=== PATIENT | female | born 1935 | race Caucasian/White ===

== ENCOUNTER → 2016-11-12 | Outpatient (CLI) | payer MEDICARE, BC ==
[2016-11-12 12:24] LABS: ANION GAP 11 (5-19); BLOOD UREA NITROGEN 17 mg/dL (7-20); CARBON DIOXIDE 26 mmol/L (22-30); CHLORIDE 103 mmol/L (98-107); CHOLESTEROL 200.45 mg/dL (0-200); CREATININE RESULT 0.79 mg/dL (0.52-1.25); Direct HDL 88 mg/dL (>40); GLUCOSE 80 mg/dL (75-110); POTASSIUM 4.5 mmol/L (3.6-5.0); SODIUM 140.1 mmol/L (137-145); TRIGLYCERIDES 111 mg/dL (<150)
[2016-11-12 12:35] LABS: DIRECT LDL 94 mg/dL (<100)
== END ==
LOC: OD 10:55
PROVIDERS: ATTEND Family Medicine
DX: E78.2 Mixed hyperlipidemia (principal); I10 Essential (primary) hypertension; D64.9 Anemia, unspecified; Z79.899 Other long term (current) drug therapy
CPT/HCPCS: 36415; 80048; 80061; 83036; 84443

== ENCOUNTER 2016-11-21 17:51 | Observation (INO) | payer MEDICARE, BC ==
--- NOTE | 2016-11-21 18:44 | ER Document Report ---
ED Medical Screen (RME) - General Chief Complaint: Headache Stated Complaint: HEADACHE,LEFT ARM PAIN Mode of Arrival: Ambulatory Information source: Patient Notes: 81-year-old female presents to the emergency department complaining of onset of left arm pain, headache, and left arm weakness approximately 2 and half hours ago while watching television. Denies vision changes nausea or vomiting, chest pain, shortness of breath. I have greeted and performed a rapid initial assessment of this patient. A comprehensive ED assessment and evaluation of the patient, analysis of test results and completion of the medical decision making process will be conducted by additional ED providers. TRAVEL OUTSIDE OF THE [place] IN LAST 30 DAYS: No - Related Data Allergies/Adverse Reactions: ciprofloxacin [From Cipro] Allergy (Verified 11/21/16 18:32) ibuprofen Allergy (Verified 11/21/16 18:32) methotrexate [Methotrexate] Allergy (Verified 11/21/16 18:32) Hives NSAIDS (Non-Steroidal Anti-Inflamma [Nsaids] Allergy (Verified 11/21/16 18:32) aspirin [Aspirin] Adverse Reaction (Mild, Verified 11/21/16 18:32) Nausea codeine [Codeine] Adverse Reaction (Verified 11/21/16 18:32) hydrocodone [Hydrocodone] Adverse Reaction (Verified 11/21/16 18:32) oxycodone HCl [From Percocet] Adverse Reaction (Verified 11/21/16 18:32) Dizziness Sulfa (Sulfonamide Antibiotics) Adverse Reaction (Verified 11/21/16 18:32) Past Medical History - Social History Chew tobacco use (# tins/day): No Frequency of alcohol use: None Drug Abuse: None - Past Medical History Cardiac Medical History: Reports: Hx Atrial Fibrillation, Hx Hypercholesterolemia, Hx Hypertension Pulmonary Medical History: Reports: Hx Asthma, Hx Bronchitis, Hx COPD Denies: Hx Tuberculosis Neurological Medical History: Denies: Hx Seizures Renal/ Medical History: Denies: Hx Peritoneal Dialysis GI Medical History: Reports: Hx Gastroesophageal Reflux Disease Musculoskeltal Medical History: Reports Hx Arthritis, Reports Hx Fibromyalgia Psychiatric Medical History: Reports: Hx Depression Past Surgical History: Reports: Hx Appendectomy, Hx Hysterectomy, Hx Orthopedic Surgery - cervical fusion, Hx Tonsillectomy, Hx Tubal Ligation. Denies: Hx Pacemaker - Immunizations Immunizations up to date: Yes Hx Diphtheria, Pertussis, Tetanus Vaccination: Yes Physical Exam - Vital signs Vitals: Temp Pulse Resp BP Pulse Ox 98.1 F 102 H 20 138/51 H 97 11/21/16 18:29 11/21/16 18:29 11/21/16 18:29 11/21/16 18:29 11/21/16 18:29 - HEENT Pupils: PERRL - Respiratory Respiratory status: No respiratory distress - Cardiovascular Rhythm: Regular Pulses: Normal: Radial Normal capillary refill: Yes - Neurological Neuro grossly intact: Yes Cognition: Normal Orientation: AAOx4 [place] Coma Scale Eye Opening: Spontaneous [place] Coma Scale Verbal: Oriented [place] Coma Scale Motor: Obeys Commands [place] Coma Scale Total: 15 Speech: Normal Course - Vital Signs Vital signs: Temp Pulse Resp BP Pulse Ox 98.1 F 102 H 20 138/51 H 97 11/21/16 18:29 11/21/16 18:29 11/21/16 18:29 11/21/16 18:29 11/21/16 18:29
[2016-11-21] MEDS ORDERED: OXYCODONE-ACETAMINOPHEN 5-325 MG TABLET PO ONE (19:24)
--- NOTE | 2016-11-21 19:40 | ER Document Report ---
ED General - General Chief Complaint: Headache Stated Complaint: HEADACHE,LEFT ARM PAIN Mode of Arrival: Ambulatory Information source: Patient Notes: 81-year-old female presents with complaints of sudden left arm numbness weakness headache and then severe left arm pain. Patient denies any other symptoms and family member notes these symptoms are new for the patient patient also admits to chills TRAVEL OUTSIDE OF THE [place] IN LAST 30 DAYS: No - HPI Onset: Just prior to arrival Onset/Duration: Sudden Quality of pain: Sharp Severity: Mild Pain Level: 1 Associated symptoms: Headache Exacerbated by: Movement Relieved by: Denies Similar symptoms previously: No Recently seen / treated by doctor: No - Related Data Allergies/Adverse Reactions: ciprofloxacin [From Cipro] Allergy (Verified 11/21/16 18:32) ibuprofen Allergy (Verified 11/21/16 18:32) methotrexate [Methotrexate] Allergy (Verified 11/21/16 18:32) Hives NSAIDS (Non-Steroidal Anti-Inflamma [Nsaids] Allergy (Verified 11/21/16 18:32) aspirin [Aspirin] Adverse Reaction (Mild, Verified 11/21/16 18:32) Nausea codeine [Codeine] Adverse Reaction (Verified 11/21/16 18:32) hydrocodone [Hydrocodone] Adverse Reaction (Verified 11/21/16 18:32) oxycodone HCl [From Percocet] Adverse Reaction (Verified 11/21/16 18:32) Dizziness Sulfa (Sulfonamide Antibiotics) Adverse Reaction (Verified 11/21/16 18:32) Past Medical History - General Information source: Patient - Social History Smoking Status: Never Smoker Cigarette use (# per day): No Chew tobacco use (# tins/day): No Smoking Education Provided: No Frequency of alcohol use: None Drug Abuse: None Family History: Reviewed & Not Pertinent, Hypertension Patient has suicidal ideation: No Patient has homicidal ideation: No - Past Medical History Cardiac Medical History: Reports: Hx Atrial Fibrillation, Hx Hypercholesterolemia, Hx Hypertension Pulmonary Medical History: Reports: Hx Asthma, Hx Bronchitis, Hx COPD Denies: Hx Tuberculosis Neurological Medical History: Denies: Hx Seizures Renal/ Medical History: Denies: Hx Peritoneal Dialysis GI Medical History: Reports: Hx Gastroesophageal Reflux Disease Musculoskeltal Medical History: Reports Hx Arthritis, Reports Hx Fibromyalgia Psychiatric Medical History: Reports: Hx Depression Past Surgical History: Reports: Hx Appendectomy, Hx Hysterectomy, Hx Orthopedic Surgery - cervical fusion, Hx Tonsillectomy, Hx Tubal Ligation. Denies: Hx Pacemaker - Immunizations Immunizations up to date: Yes Hx Diphtheria, Pertussis, Tetanus Vaccination: Yes Hx Pneumococcal Vaccination: 08/13/14 Review of Systems - Review of Systems Notes: REVIEW OF SYSTEMS: CONSTITUTIONAL : Denies fever, chills, or sweats. Denies recent illness. EENT: Denies eye, ear, throat, or mouth pain or symptoms. Denies nasal or sinus congestion or discharge. Denies throat, tongue, or mouth swelling or difficulty swallowing. CARDIOVASCULAR: Denies chest pain. Denies palpitations or racing or irregular heart beat. Denies ankle edema. RESPIRATORY: Denies cough, cold, or chest congestion. Denies shortness of breath, difficulty breathing, or wheezing. GASTROINTESTINAL: Denies abdominal pain or distention. Denies nausea, vomiting , or diarrhea. Denies blood in vomitus, stools, or per rectum. Denies black, tarry stools. Denies constipation. GENITOURINARY: Denies difficulty urinating, painful urination, burning, frequency, blood in urine, or discharge. FEMALE GENITOURINARY: Denies vaginal bleeding, heavy or abnormal periods, irregular periods. Denies vaginal discharge or odor. MUSCULOSKELETAL: Denies back or neck pain or stiffness. Denies joint pain or swelling. SKIN: Denies rash, lesions or sores. HEMATOLOGIC : Denies easy bruising or bleeding. LYMPHATIC: Denies swollen, enlarged glands. NEUROLOGICAL: admits ot headache, left arm weakness and pain PSYCHIATRIC: Denies anxiety or stress. Denies depression, suicidal ideation, or homicidal ideation. ALL OTHER SYSTEMS REVIEWED AND NEGATIVE. Dictation was performed using [employer] voice recognition software PHYSICAL EXAMINATION: GENERAL: Well-appearing, well-nourished and in mild distress. HEAD: Atraumatic, normocephalic. EYES: Pupils equal round and reactive to light, extraocular movements intact, conjunctiva are normal. ENT: Nares patent, oropharynx clear without exudates. Moist mucous membranes. NECK: Normal range of motion, supple without lymphadenopathy LUNGS: Breath sounds clear to auscultation bilaterally and equal. No wheezes rales or rhonchi. HEART: Regular rate and rhythm without murmurs ABDOMEN: Soft, nontender, nondistended abdomen. No guarding, no rebound. No masses appreciated. Female : deferred Musculoskeletal: left arm pain NEUROLOGICAL: left arm pain PSYCH: Normal mood, normal affect. SKIN: Warm, Dry, normal turgor, no rashes or lesions noted. Physical Exam - Vital signs Vitals: Temp Pulse Resp BP Pulse Ox 98.1 F 102 H 20 138/51 H 97 11/21/16 18:29 11/21/16 18:29 11/21/16 18:29 11/21/16 18:29 11/21/16 18:29 Course - Re-evaluation Re-evalutation: 11/21/16 19:39 Patient will be emergently sent for CT of the head to rule out an acute stroke 11/21/16 20:51 ct head was negative 11/21/16 20:54 Patient given aspirin, have high suspicion for CVA however the pain component is odd. Patients in sinus rhythm Patient had difficulty swallowing with swallow evaluation we'll hold off on oral pills will give IV pain control - Vital Signs Vital signs: Temp Pulse Resp BP Pulse Ox 98.1 F 99 17 151/69 H 94 11/21/16 18:29 11/21/16 19:00 11/21/16 20:01 11/21/16 20:01 11/21/16 20:01 - Laboratory Result Diagrams: 11/21/16 19:50 11/21/16 19:50 Laboratory results interpreted by me: 11/21/16 11/21/16 19:50 19:50 Seg Neutrophils % 78.7 H Sodium 134.1 L Chloride 97 L AST 53 H ALT 58 H - Diagnostic Test Radiology reviewed: Image reviewed, Reports reviewed - EKG Interpretation by Sd EKG shows normal: Sinus rhythm, [place], Intervals, QRS Complexes Discharge - Discharge Clinical Impression: Weakness of left upper extremity HTN (hypertension) Qualifiers: Hypertension type: essential hypertension Qualified Code(s): I10 - Essential ( primary) hypertension Headache Qualifiers: Headache type: unspecified Headache chronicity pattern: acute headache Intractability: not intractable Qualified Code(s): R51 - Headache Dysphagia Qualifiers: Dysphagia type: oral phase Qualified Code(s): R13.11 - Dysphagia, oral phase Condition: Stable Disposition: ADMITTED INPATIENT Admitting Provider: Hospitalist Unit Admitted: Telemetry
[2016-11-21 20:09] LABS: ABSOLUTE LYMPHOCYTES (AUTO) 1.4 10^3/uL (0.5-4.7); ABSOLUTE MONOCYTES (AUTO) 0.6 10^3/uL (0.1-1.4); ABSOLUTE NEUT (AUTO) 7.8 10^3/uL (1.7-8.2); BASOPHILS % (AUTO) 0.5 % (0-2); EOSINOPHILS % (AUTO) 0.4 % (0-6); HEMATOCRIT 38.6 % (36.0-47.0); HEMOGLOBIN 12.8 g/dL (12.0-15.5); HGB HCT DIFFERENCE -0.2; LYMPHOCYTES % (AUTO) 14.5 % (13-45); MEAN CORPUSCULAR HEMOGLOBIN 30.3 pg (27.0-33.4); MEAN CORPUSCULAR HGB CONC 33.3 g/dL (32.0-36.0); MEAN CORPUSCULAR VOLUME 91 fl (80-97); MONOCYTES % (AUTO) 5.9 % (3-13); RED BLOOD COUNT 4.24 10^6/uL (3.72-5.28); SEGMENTED NEUTROPHILS % (AUTO) 78.7 % (42-78)
[2016-11-21 20:30] LABS: ALANINE AMINOTRANSFERASE 58 U/L (9-52); ALBUMIN 4.3 g/dL (3.5-5.0); ALKALINE PHOSPHATASE 64 U/L (38-126); ANION GAP 12 (5-19); ASPARTATE AMINO TRANSFERASE 53 U/L (14-36); BILIRUBIN,TOTAL 0.5 mg/dL (0.2-1.3); BLOOD UREA NITROGEN 18 mg/dL (7-20); CALCIUM 9.5 mg/dL (8.4-10.2); CARBON DIOXIDE 25 mmol/L (22-30); CHLORIDE 97 mmol/L (98-107); CREATINE KINASE 42 U/L (30-135); CREATININE RESULT 0.73 mg/dL (0.52-1.25); GLUCOSE 93 mg/dL (75-110); POTASSIUM 4.7 mmol/L (3.6-5.0); SODIUM 134.1 mmol/L (137-145); TOTAL PROTEIN 6.8 g/dL (6.3-8.2)
[2016-11-21 20:41] LABS: CREATINE KINASE MB 0.78 ng/mL (<4.55)
[2016-11-21 20:42] LABS: TROPONIN I < 0.012 ng/mL
[2016-11-21] MEDS ORDERED: MORPHINE SULFATE 10 MG/ML INJ IV ONE (20:46)
[2016-11-21] MEDS ORDERED: ASPIRIN 325 MG TABLET PO ONE (20:54)
[2016-11-21] MEDS ORDERED: DOCUSATE SODIUM 100 MG CAPSULE PO PRN (20:57)
[2016-11-21] MEDS ORDERED: MAGNESIUM HYDROXIDE SUSP 30 ML UDCUP PO PRN (20:57)
[2016-11-21] MEDS ORDERED: ATORVASTATIN CALCIUM 80 MG TABLET PO ONE (22:00)
[2016-11-21] MEDS ORDERED: DILTIAZEM HCL 60 MG TABLET PO ONE (22:00)
[2016-11-21] MEDS ORDERED: HALOPERIDOL 2 MG TABLET PO ONE (22:20)
[2016-11-22] MEDS: HEPARIN SOD (PORCINE) 5,000 UNIT/ML 1 ML SYRINGE SUBCUT SCH ×4 (00:06→22:07)
[2016-11-22 02:38] LABS: CREATINE KINASE MB 0.48 ng/mL (<4.55); TROPONIN I 0.02 ng/mL
[2016-11-22] MEDS: MORPHINE SULFATE 10 MG/5 ML ORAL SOLUTION UDCUP PO PRN ×2 (02:46→06:53)
--- NOTE | 2016-11-22 05:11 | PDOC H&P ---
History of Present Illness Admission Date/PCP: 11/21/16 20:57 LOBITO HYMAN MD Patient complains of: Left shoulder pain History of Present Illness: ARMANDO MANLEY is a 81 year old female with a past medical history of TIA, atrial fibrillation, hypertension, rheumatoid arthritis, osteopenia, anxiety and chronic pain. Who been her usual state of health until sudden onset of severe and reproducible pain to the left shoulder worsened by minimal movement or palpation of the anterior shoulder. Specifically unable to perform anterior flexion without excruciating pain. Patient's initial complaint of vague weakness with numbness is verified to be inaccurate. Patient denies previous episode and denies trauma. Past Medical History Cardiac Medical History: Reports: Atrial Fibrillation, Hyperlipidema, Hypertension Pulmonary Medical History: Reports: Asthma, Bronchitis, Chronic Obstructive Pulmonary Disease (COPD) Denies: Tuberculosis Neurological Medical History: Denies: Seizures GI Medical History: Reports: Gastroesophageal Reflux Disease Musculoskeltal Medical History: Reports: Arthritis, Fibromyalgia Psychiatric Medical History: Reports: Depression Hematology: Reports: Anemia Past Surgical History Past Surgical History: Reports: Appendectomy, Hysterectomy, Orthopedic Surgery - cervical fusion, Tonsillectomy, Tubal Ligation Denies: Pacemaker Social History Information Source: Patient Lives with: Family Smoking Status: Never Smoker Frequency of Alcohol Use: None Hx Recreational Drug Use: No Drugs: None - Advance Directive Resuscitation Status: Full Code Family History Family History: Reviewed & Not Pertinent, Hypertension Parental Family History Reviewed: Yes Children Family History Reviewed: Yes Sibling(s) Family History Reviewed.: Yes Medication/Allergy Home Medications: Clopidogrel Bisulfate [Plavix] 1 tab PO DAILY 03/06/15 Colchicine [Colcrys] 1 tab PO DAILY 03/06/15 Cyclosporine 0.05% Oph Emulsio [Restasis 0.05% Oph Emulsion Pf 0.4 ml] 1 drop OU DAILY 03/06/15 Digoxin [Lanoxin 0.125 mg Tablet] 1 tab PO DAILY 03/06/15 Diltiazem HCl [Cardizem Cd 120 mg Capsule] 1 tab PO DAILY 03/06/15 Fluticasone Propionate [Flonase Nasal [place] 50 Mcg/[place] 16 gm] 1 each NASL DAILY 03/06/15 Fluticasone/Salmeterol [Advair 100-50 Diskus 14 Dose/Diskus] 1 inh IH Q12H 03/06 Gabapentin 1 tab PO DAILY 03/06/15 Lansoprazole [Prevacid] 1 tab PO DAILY 03/06/15 Magnesium Oxide [Magox] 1 tab PO DAILY 03/06/15 Prednisone 1.5 tab PO DAILY 03/06/15 Adalimumab [Humira] 1 dose SQ ASDIR PRN 11/22/16 Ergocalciferol (Vitamin D2) [Vitamin D2] 1 tab PO ASDIR PRN 11/22/16 Meclizine HCl [Antivert 25 mg Tablet] 1 tab PO Q8HP PRN 11/22/16 Oxycodone HCl [Oxycodone HCl] 1 tab PO Q4H PRN 11/22/16 Prednisone [Prednisone] 1 tab PO DAILY 11/22/16 Sennosides/Docusate Sodium [Ra Senna Plus Tablet] 1 tab PO QAM 11/22/16 Allergies/Adverse Reactions: ciprofloxacin [From Cipro] Allergy (Verified 11/21/16 18:32) ibuprofen Allergy (Verified 11/21/16 18:32) methotrexate [Methotrexate] Allergy (Verified 11/21/16 18:32) Hives NSAIDS (Non-Steroidal Anti-Inflamma [Nsaids] Allergy (Verified 11/21/16 18:32) aspirin [Aspirin] Adverse Reaction (Mild, Verified 11/21/16 18:32) Nausea codeine [Codeine] Adverse Reaction (Verified 11/21/16 18:32) hydrocodone [Hydrocodone] Adverse Reaction (Verified 11/21/16 18:32) oxycodone HCl [From Percocet] Adverse Reaction (Verified 11/21/16 18:32) Dizziness Sulfa (Sulfonamide Antibiotics) Adverse Reaction (Verified 11/21/16 18:32) Review of Systems Constitutional: ABSENT: chills, fever(s), headache(s), weight gain, weight loss Eyes: ABSENT: visual disturbances Ears: ABSENT: hearing changes Cardiovascular: ABSENT: chest pain, dyspnea on exertion, edema, orthropnea, palpitations Respiratory: ABSENT: cough, hemoptysis Gastrointestinal: ABSENT: abdominal pain, constipation, diarrhea, hematemesis, hematochezia, nausea, vomiting Genitourinary: ABSENT: dysuria, hematuria Musculoskeletal: ABSENT: joint swelling Integumentary: ABSENT: rash, wounds Neurological: ABSENT: abnormal gait, abnormal speech, confusion, dizziness, focal weakness, syncope Psychiatric: PRESENT: anxiety. ABSENT: depression, homidical ideation, suicidal ideation Endocrine: ABSENT: cold intolerance, heat intolerance, polydipsia, polyuria Hematologic/Lymphatic: ABSENT: easy bleeding, easy bruising Physical Exam Vital Signs: Temp Pulse Resp BP Pulse Ox 97.6 F 99 26 H 116/89 H 94 11/22/16 02:55 11/22/16 02:55 11/22/16 03:02 11/22/16 02:55 11/22/16 03:02 General appearance: PRESENT: severe distress Head exam: PRESENT: atraumatic, normocephalic Eye exam: PRESENT: conjunctiva pink, EOMI, PERRLA. ABSENT: scleral icterus Ear exam: PRESENT: normal external ear exam Mouth exam: PRESENT: moist, tongue midline Neck exam: ABSENT: carotid bruit, JVD, lymphadenopathy, thyromegaly Respiratory exam: PRESENT: clear to auscultation keysha. ABSENT: rales, rhonchi, wheezes Cardiovascular exam: PRESENT: RRR. ABSENT: diastolic murmur, rubs, systolic murmur Pulses: PRESENT: normal dorsalis pedis pul Vascular exam: PRESENT: normal capillary refill GI/Abdominal exam: PRESENT: normal bowel sounds, soft. ABSENT: distended, guarding, mass, organolmegaly, rebound, tenderness Extremities exam: PRESENT: tenderness, other. ABSENT: calf tenderness, clubbing , joint swelling - Left anterior shoulder exquisitely tender to palpation unable to extend, flex or abduct, pedal edema Musculoskeletal exam: PRESENT: ambulatory, tenderness, other - Left anterior shoulder exquisitely tender to palpation unable to extend, flex or abduct. ABSENT: full ROM Neurological exam: PRESENT: alert, awake, oriented to person, oriented to place , oriented to time, oriented to situation, CN II-XII grossly intact. ABSENT: motor sensory deficit Psychiatric exam: PRESENT: anxious Skin exam: PRESENT: dry, intact, warm. ABSENT: cyanosis, rash Results Laboratory Results: 11/22/16 11/22/16 01:45 01:45 Creatine Kinase 74 CK-MB (CK-2) 0.48 Troponin I 0.020 Impressions: Carotid Doppler Study 11/21/16 00:00 IMPRESSION: NO HEMODYNAMICALLY SIGNIFICANT STENOSIS RIGHT INTERNAL CAROTID ARTERY. APPROACHING 50% STENOSIS LEFT PROXIMAL INTERNAL CAROTID ARTERY. Shoulder X-Ray 11/21/16 00:00 IMPRESSION: NO RADIOGRAPHIC EVIDENCE OF ACUTE INJURY. MINIMAL OSTEOARTHRITIS. Head CT 11/21/16 18:28 IMPRESSION: NO ACUTE INTRACRANIAL PROCESS. NO SIGNIFICANT CHANGE FROM PRIOR STUDY. Assessment & Plan - Diagnosis (1) Capsulitis of left shoulder Is this a current diagnosis for this admission?: YesPlan: Symptomatically management physical therapy consultation, imaging to evaluate for fracture given osteoporosis (2) Rheumatoid arthritis Is this a current diagnosis for this admission?: YesPlan: Continue outpatient regiment (3) Fibromyalgia Is this a current diagnosis for this admission?: YesPlan: Symptomatic management reassurance continue outpatient regiment - Time Time Spent: 30 to 50 Minutes
[2016-11-22 07:50] LABS: ABSOLUTE BASOPHILS # (AUTO) 0.1 10^3/uL (0.0-0.2); ABSOLUTE LYMPHOCYTES (AUTO) 2.2 10^3/uL (0.5-4.7); ABSOLUTE MONOCYTES (AUTO) 1.7 10^3/uL (0.1-1.4); ABSOLUTE NEUT (AUTO) 14.8 10^3/uL (1.7-8.2); BASOPHILS % (AUTO) 0.7 % (0-2); EOSINOPHILS % (AUTO) 0.1 % (0-6); HEMATOCRIT 34.5 % (36.0-47.0); HEMOGLOBIN 11.4 g/dL (12.0-15.5); HGB HCT DIFFERENCE -0.3; LYMPHOCYTES % (AUTO) 11.6 % (13-45); MEAN CORPUSCULAR HEMOGLOBIN 29.8 pg (27.0-33.4); MEAN CORPUSCULAR VOLUME 90 fl (80-97); MONOCYTES % (AUTO) 9.1 % (3-13); RED BLOOD COUNT 3.82 10^6/uL (3.72-5.28); RED CELL DISTRIBUTION WIDTH 14.3 % (11.5-14.0); SEGMENTED NEUTROPHILS % (AUTO) 78.5 % (42-78); WHITE BLOOD COUNT 18.8 10^3/uL (4.0-10.5)
[2016-11-22 08:07] LABS: ANION GAP 6 (5-19); BLOOD UREA NITROGEN 20 mg/dL (7-20); CALCIUM 8.7 mg/dL (8.4-10.2); CARBON DIOXIDE 27 mmol/L (22-30); CHLORIDE 97 mmol/L (98-107); CHOLESTEROL 145.95 mg/dL (0-200); CREATINE KINASE 119 U/L (30-135); CREATININE RESULT 0.72 mg/dL (0.52-1.25); Direct HDL 68 mg/dL (>40); GLUCOSE 96 mg/dL (75-110); SODIUM 130.4 mmol/L (137-145); TRIGLYCERIDES 208 mg/dL (<150)
[2016-11-22 08:18] LABS: DIRECT LDL 47 mg/dL (<100)
[2016-11-22 08:19] LABS: CREATINE KINASE MB 1.88 ng/mL (<4.55); TROPONIN I 0.046 ng/mL
[2016-11-22 08:24] LABS: VLDL CHOLESTEROL 41.6 mg/dL (10-31)
[2016-11-22 08:29] LABS: POTASSIUM 3.7 mmol/L (3.6-5.0)
--- NOTE | 2016-11-22 10:34 | EKG REPORT ---
SEVERITY:- ABNORMAL ECG - SINUS TACHYCARDIA LEFT AXIS DEVIATION REPOL ABNRM SUGGESTS ISCHEMIA, LATERAL LEADS : Confirmed by: Shahbaz Ordaz 22-Nov-2016 10:33:59
[2016-11-22] MEDS: DILTIAZEM HCL 120 MG CAP.SR.24H PO SCH (11:22)
[2016-11-22] MEDS: CLOPIDOGREL BISULFATE 75 MG TABLET PO SCH (11:24)
[2016-11-22] MEDS: DIGOXIN 0.125 MG TABLET PO SCH (11:25)
[2016-11-22 14:53] LABS: APPEARANCE,URINE SLIGHTLY-CLOUDY; BILIRUBIN,URINE NEGATIVE (NEGATIVE); GLUCOSE, URINE NEGATIVE (NEGATIVE); KETONES,URINE NEGATIVE (NEGATIVE); LEUKOCYTE ESTERASE,URINE MODERATE (NEGATIVE); NITRITE,URINE NEGATIVE (NEGATIVE); PROTEIN,URINE NEGATIVE (NEGATIVE); URINE SPECIFIC GRAVITY 1.011; UROBILINOGEN,URINE NEGATIVE mg/dL (<2.0)
[2016-11-22 15:20] LABS: CREATINE KINASE MB 2.01 ng/mL (<4.55); TROPONIN I 0.064 ng/mL
[2016-11-22] MEDS: HYDROCODONE/ACETAMINOPHEN 7.5-325 MG TABLET PO PRN (19:20)
[2016-11-23] MEDS: HEPARIN SOD (PORCINE) 5,000 UNIT/ML 1 ML SYRINGE SUBCUT SCH ×3 (05:17→22:01)
[2016-11-23] MEDS: HYDROCODONE/ACETAMINOPHEN 7.5-325 MG TABLET PO PRN ×3 (07:47→22:03)
--- NOTE | 2016-11-23 08:22 | PDOC CONSULTATION ---
Consultation Consult Date: 11/23/16 Consult reason:: Left shoulder pain History of Present Illness Admission Date/PCP: 11/21/16 20:57 LOBITO HYMAN MD History of Present Illness: The patient is an 81-year-old white female with multiple medical comorbidities including rheumatoid arthritis and gout who presents with among other complaints of left shoulder pain. The patient was evaluated and admitted to the hospitalist service. His orthopedics consult for evaluation of the shoulder pain. Past Medical History Cardiac Medical History: Reports: Atrial Fibrillation, Hyperlipidema, Hypertension Pulmonary Medical History: Reports: Asthma, Bronchitis, Chronic Obstructive Pulmonary Disease (COPD) Denies: Tuberculosis Neurological Medical History: Denies: Seizures GI Medical History: Reports: Gastroesophageal Reflux Disease Musculoskeltal Medical History: Reports: Arthritis, Fibromyalgia Psychiatric Medical History: Reports: Depression Hematology: Reports: Anemia Past Surgical History Past Surgical History: Reports: Appendectomy, Hysterectomy, Orthopedic Surgery - cervical fusion, Tonsillectomy, Tubal Ligation Denies: Pacemaker Social History Information Source: Patient, Dr. Pendleton, [facility] Records Lives with: Family Smoking Status: Never Smoker Frequency of Alcohol Use: None Hx Recreational Drug Use: No Drugs: None Hx Prescription Drug Abuse: No - Advance Directive Resuscitation Status: Full Code Family History Family History: Reviewed & Not Pertinent, Hypertension Parental Family History Reviewed: No Children Family History Reviewed: No Sibling(s) Family History Reviewed.: No Medication/Allergy Home Medications: Adalimumab [Humira] 40 mg SQ TH@1000 11/22/16 Ascorbate Calcium [Vitamin C] 500 mg PO DAILY 11/22/16 Calcium Carbonate/Vitamin D3 [Calcium 600 + Vit D 400 Tablet] 1 tab PO DAILY Clopidogrel Bisulfate [Plavix 75 mg Tablet] 75 mg PO DAILY 11/22/16 Colchicine [Colchicine 0.6 mg Tablet] 0.6 mg PO DAILY 11/22/16 Cyclosporine 0.05% Oph Emulsio [Restasis 0.05% Opthalmic [place]] 1 drop OU DAILY 11/22/16 Digoxin [Lanoxin 0.125 mg Tablet] 0.125 mg PO MOWEFR@1000 11/22/16 Diltiazem HCl [Diltiazem 12Hr ER] 120 mg PO Q12 11/22/16 Ergocalciferol (Vitamin D2) [Vitamin D2] 50,000 unit PO [id number] 02/18/17 Fluticasone Propionate [Flonase Nasal [place] 50 Mcg/[place] 16 gm] 1 spray NASL DAILY 11/22/16 Fluticasone/Salmeterol [Advair 100-50 Diskus 14 Dose/Diskus] 1 inh IH Q12 Gabapentin [Neurontin 300 mg Capsule] 300 mg PO Q8 11/22/16 Lansoprazole [Prevacid 15 Mg Odt Tablet] 15 mg PO DAILY 11/22/16 Magnesium Oxide [Magnesium] 400 mg PO Q8 11/22/16 Meclizine HCl [Antivert 25 mg Tablet] 25 mg PO Q8HP PRN 11/22/16 Meloxicam [Mobic 7.5 Mg Tablet] 7.5 mg PO DAILY 11/22/16 Montelukast Sodium [Singulair 10 mg Tablet] 10 mg PO DAILY 11/22/16 Multivits-Min/Iron/FA/Lutein [Centrum Silver Women Tablet] 1 each PO DAILY 11/22 Oxycodone HCl [Oxy-Ir 5 mg Tablet] 2.5 mg PO Q4HP PRN 11/22/16 Prednisone [Deltasone 5 mg Tablet] 7.5 mg PO DAILY 11/22/16 Sennosides [Senna] 8.6 mg PO QAM 11/22/16 Simethicone [Gas-X] 80 mg PO Q6HP PRN 11/22/16 Allergies/Adverse Reactions: ciprofloxacin [From Cipro] Allergy (Verified 11/21/16 18:32) ibuprofen Allergy (Verified 11/21/16 18:32) methotrexate [Methotrexate] Allergy (Verified 11/21/16 18:32) Hives NSAIDS (Non-Steroidal Anti-Inflamma [Nsaids] Allergy (Verified 11/21/16 18:32) aspirin [Aspirin] Adverse Reaction (Mild, Verified 11/21/16 18:32) Nausea codeine [Codeine] Adverse Reaction (Verified 11/21/16 18:32) hydrocodone [Hydrocodone] Adverse Reaction (Verified 11/21/16 18:32) oxycodone HCl [From Percocet] Adverse Reaction (Verified 11/21/16 18:32) Dizziness Sulfa (Sulfonamide Antibiotics) Adverse Reaction (Verified 11/21/16 18:32) Review of Systems All systems: as per PMH Physical Exam Vital Signs: Temp Pulse Resp BP Pulse Ox 36.7 C 86 20 126/51 H 98 11/23/16 07:47 11/23/16 07:47 11/23/16 07:47 11/23/16 07:47 11/23/16 07:47 Intake & Output 11/22/16 11/23/16 11/24/16 06:59 06:59 06:59 Intake Total 5 1028 Output Total 1000 Balance 5 28 Weight 68.9 kg 68.5 kg Physical Exam: Patient's a somewhat frail-appearing elderly white female lying in a hospital bed. He reports no overall improvement in her pain and function of the left upper extremity. She states that now she can use her fingers work before she couldn't. General appearance: PRESENT: mild distress Head exam: PRESENT: normocephalic Eye exam: PRESENT: EOMI Respiratory exam: PRESENT: unlabored Pulses: PRESENT: normal radial pulses Vascular exam: PRESENT: normal capillary refill GI/Abdominal exam: PRESENT: soft Extremities exam: PRESENT: other - Examination of the right shoulder reveals tenderness and erythema over the anterior aspect of the acromion and the glenohumeral joint. There is ballotable fluid. Any passive range of motion is markedly tender. Distally she is brisk capillary refill. Sensory examination is intact to light touch. Patient has symmetric apartment locator strength. Neurological exam: PRESENT: alert, awake, oriented to person, oriented to place , oriented to time, oriented to situation, CN II-XII grossly intact. ABSENT: motor sensory deficit Results Laboratory Results: 11/22/16 07:39 11/22/16 07:39 11/22/16 11/22/16 07:39 14:10 Sodium 130.4 L Potassium 3.7 D Chloride 97 L Carbon Dioxide 27 Anion Gap 6 BUN 20 Creatinine 0.72 Est GFR ( Amer) > 60 Est GFR (Non-Af Amer) > 60 Glucose 96 Calcium 8.7 Triglycerides 208 H Cholesterol 145.95 LDL Cholesterol Direct 47 VLDL Cholesterol 41.6 H HDL Cholesterol 68 Urine Color YELLOW Urine Appearance SLIGHTLY-CLOUDY Urine pH 7.0 Ur Specific [place] 1.011 Urine Protein NEGATIVE Urine Glucose (UA) NEGATIVE Urine Ketones NEGATIVE Urine Blood NEGATIVE Urine Nitrite NEGATIVE Ur Leukocyte Esterase MODERATE H Urine WBC (Auto) 10 Urine RBC (Auto) 0 11/22/16 11/22/16 11/22/16 01:45 01:45 07:39 Creatine Kinase 74 CK-MB (CK-2) 0.48 1.88 Troponin I 0.020 0.046 11/22/16 11/22/16 11/22/16 07:39 14:37 14:37 Creatine Kinase 119 157 H CK-MB (CK-2) 2.01 Troponin I 0.064 Impressions: Carotid Doppler Study 11/21/16 00:00 IMPRESSION: NO HEMODYNAMICALLY SIGNIFICANT STENOSIS RIGHT INTERNAL CAROTID ARTERY. APPROACHING 50% STENOSIS LEFT PROXIMAL INTERNAL CAROTID ARTERY. Shoulder X-Ray 11/21/16 00:00 IMPRESSION: NO RADIOGRAPHIC EVIDENCE OF ACUTE INJURY. MINIMAL OSTEOARTHRITIS. Head CT 11/21/16 18:28 IMPRESSION: NO ACUTE INTRACRANIAL PROCESS. NO SIGNIFICANT CHANGE FROM PRIOR STUDY. Status: Imported from PACS Assessment & Plan - Diagnosis (1) Capsulitis of left shoulder Is this a current diagnosis for this admission?: YesPlan: 81-year-old white female with progressive left shoulder pain and functional disability. Over the course of 2 days. An aspiration of the fluid today reveals approximately 20 mL of a turbid yellow fluid is sent for cell count and differential, culture and sensitivity, and crystal analysis. - Time Time Spent: 50 to 70 Minutes Critical Time spent with patient: 15-24 minutes Within: Other
--- NOTE | 2016-11-23 08:26 | Operative Report ---
Operative Report DATE OF SURGERY: 11/23/16 PREOPERATIVE DIAGNOSIS: Left shoulder inflammation OPERATION: Left shoulder aspiration SURGEON: FLOR ESPINOSA ANESTHESIA: Other PROCEDURE: With the patient supine on the hospital bed. The anterior aspect of the left shoulder was prepped and draped in sterile fashion. An 18-gauge needles advanced through the anterior deltoid and an aspirate of 20 mL of a turbid yellow fluid is performed. Is a sent to the lab for culture and sensitivity, cell count differential, and crystal analysis.
[2016-11-23 09:30] LABS: FLUID APPEARANCE CLOUDY; FLUID TYPE SYNOVIAL
[2016-11-23 09:31] LABS: FLUID RBC DILUENT USED SALINE; FLUID RBC DILUTION FACTOR 20
[2016-11-23 09:41] LABS: FLUID RBC AVERAGE 149.5; FLUID RBC SIDE 1 148; FLUID RBC SIDE 2 151; TOTAL RBC SQUARES COUNTED FLD 50
[2016-11-23 10:02] LABS: OTHER CRYSTALS NONE OBSERVED
--- NOTE | 2016-11-23 10:33 | EKG REPORT ---
SEVERITY:- OTHERWISE NORMAL ECG - SINUS RHYTHM ATRIAL PREMATURE COMPLEX BORDERLINE LEFT AXIS DEVIATION : Confirmed by: Shahbaz Ordaz 23-Nov-2016 10:32:59
--- NOTE | 2016-11-23 10:42 | PDOC PROGRESS REPORT ---
Subjective Progress Note for:: 11/23/16 Subjective:: Complains of pain in her left shoulder. 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 Physical Exam Vital Signs: Temp Pulse Resp BP Pulse Ox 98.0 F 86 20 126/51 H 98 11/23/16 07:47 11/23/16 07:47 11/23/16 07:47 11/23/16 07:47 11/23/16 07:47 Intake & Output 11/22/16 11/23/16 11/24/16 06:59 06:59 06:59 Intake Total 5 1028 Output Total 1000 Balance 5 28 Weight 68.9 kg 68.5 kg General appearance: PRESENT: no acute distress Eye exam: PRESENT: conjunctiva pink. ABSENT: scleral icterus Mouth exam: PRESENT: moist, tongue midline Neck exam: ABSENT: JVD Respiratory exam: PRESENT: clear to auscultation keysha. ABSENT: rales, rhonchi, wheezes Cardiovascular exam: PRESENT: RRR. ABSENT: diastolic murmur, rubs, systolic murmur GI/Abdominal exam: PRESENT: normal bowel sounds, soft. ABSENT: distended, guarding, mass, organolmegaly, rebound, tenderness Extremities exam: PRESENT: other - Left shoulder has less swelling after removal Neurological exam: PRESENT: alert, awake, oriented to person, oriented to place , oriented to time, oriented to situation, CN II-XII grossly intact. ABSENT: motor sensory deficit Psychiatric exam: PRESENT: appropriate affect Skin exam: PRESENT: dry, intact, warm. ABSENT: cyanosis, rash Results Laboratory Results: 11/22/16 07:39 11/22/16 07:39 11/22/16 11/23/16 11/23/16 14:10 08:30 08:30 Urine Color YELLOW Urine Appearance SLIGHTLY-CLOUDY Urine pH 7.0 Ur Specific [place] 1.011 Urine Protein NEGATIVE Urine Glucose (UA) NEGATIVE Urine Ketones NEGATIVE Urine Blood NEGATIVE Urine Nitrite NEGATIVE Ur Leukocyte Esterase MODERATE H Urine WBC (Auto) 10 Urine RBC (Auto) 0 Fluid Type SYNOVIAL SYNOVIAL Fluid Source LEFT SHOULDER Fluid Color ORANGE Fluid Appearance CLOUDY Fluid Viscosity HIGHLY VISCOUS Fluid WBC [id number] Fluid RBC 14731 11/22/16 11/22/16 11/22/16 01:45 01:45 07:39 Creatine Kinase 74 CK-MB (CK-2) 0.48 1.88 Troponin I 0.020 0.046 11/22/16 11/22/16 11/22/16 07:39 14:37 14:37 Creatine Kinase 119 157 H CK-MB (CK-2) 2.01 Troponin I 0.064 Impressions: Carotid Doppler Study 11/21/16 00:00 IMPRESSION: NO HEMODYNAMICALLY SIGNIFICANT STENOSIS RIGHT INTERNAL CAROTID ARTERY. APPROACHING 50% STENOSIS LEFT PROXIMAL INTERNAL CAROTID ARTERY. Shoulder X-Ray 11/21/16 00:00 IMPRESSION: NO RADIOGRAPHIC EVIDENCE OF ACUTE INJURY. MINIMAL OSTEOARTHRITIS. Head CT 11/21/16 18:28 IMPRESSION: NO ACUTE INTRACRANIAL PROCESS. NO SIGNIFICANT CHANGE FROM PRIOR STUDY. Assessment & Plan - Diagnosis (1) Gouty arthropathy Is this a current diagnosis for this admission?: YesPlan: Patient is unable to take nonsteroidals. We'll start on colchicine 0.6 mg by mouth every 8 hours. If her cultures are negative tomorrow and she still has swelling we would give steroids. Will observe overnight to make certain she does not have any obvious infection and cultures given the elevated white blood cell count on the arthrocentesis. (2) HTN (hypertension) Qualifiers: Hypertension type: essential hypertension Qualified Code(s): I10 - Essential (primary) hypertension Is this a current diagnosis for this admission?: Yes (3) Afib Is this a current diagnosis for this admission?: Yes (4) Chest pain Is this a current diagnosis for this admission?: YesPlan: This most likely referred pain from her shoulder. EKG done this morning was unremarkable. (5) Rheumatoid arthritis Is this a current diagnosis for this admission?: Yes (6) COPD (chronic obstructive pulmonary disease) Is this a current diagnosis for this admission?: YesPlan: No wheezing on exam today. - Time Time Spent with patient: 25-34 minutes - Plan Summary Plan Summary: We'll observe overnight to make certain that her cultures from her arthrocentesis are negative.
[2016-11-23] MEDS: DILTIAZEM HCL 120 MG CAP.SR.24H PO SCH (11:22)
[2016-11-23] MEDS: DIGOXIN 0.125 MG TABLET PO SCH (11:23)
[2016-11-23] MEDS: CLOPIDOGREL BISULFATE 75 MG TABLET PO SCH (11:23)
[2016-11-23] MEDS: COLCHICINE 0.6 MG TABLET PO SCH ×2 (14:18→22:01)
[2016-11-23] MEDS: MORPHINE SULFATE 10 MG/5 ML ORAL SOLUTION UDCUP PO PRN (16:22)
[2016-11-24] MEDS: HYDROCODONE/ACETAMINOPHEN 7.5-325 MG TABLET PO PRN (04:46)
[2016-11-24 05:18] LABS: ANION GAP 7 (5-19); BLOOD UREA NITROGEN 10 mg/dL (7-20); CALCIUM 9.2 mg/dL (8.4-10.2); CARBON DIOXIDE 25 mmol/L (22-30); CHLORIDE 101 mmol/L (98-107); CREATININE RESULT 0.72 mg/dL (0.52-1.25); GLUCOSE 90 mg/dL (75-110); POTASSIUM 4.2 mmol/L (3.6-5.0); SODIUM 133.2 mmol/L (137-145)
[2016-11-24 05:23] LABS: ABSOLUTE BASOPHILS # (AUTO) 0.1 10^3/uL (0.0-0.2); ABSOLUTE EOSINOPHILS # (AUTO) 0.2 10^3/uL (0.0-0.6); ABSOLUTE LYMPHOCYTES (AUTO) 1.8 10^3/uL (0.5-4.7); ABSOLUTE MONOCYTES (AUTO) 0.9 10^3/uL (0.1-1.4); ABSOLUTE NEUT (AUTO) 4.2 10^3/uL (1.7-8.2); BASOPHILS % (AUTO) 0.9 % (0-2); EOSINOPHILS % (AUTO) 2.3 % (0-6); HEMATOCRIT 35.5 % (36.0-47.0); HGB HCT DIFFERENCE 0.5; MEAN CORPUSCULAR HEMOGLOBIN 30.5 pg (27.0-33.4); MEAN CORPUSCULAR HGB CONC 33.9 g/dL (32.0-36.0); MEAN CORPUSCULAR VOLUME 90 fl (80-97); MONOCYTES % (AUTO) 12.8 % (3-13); RED BLOOD COUNT 3.94 10^6/uL (3.72-5.28); RED CELL DISTRIBUTION WIDTH 14.1 % (11.5-14.0); WHITE BLOOD COUNT 7.1 10^3/uL (4.0-10.5)
[2016-11-24] MEDS: HEPARIN SOD (PORCINE) 5,000 UNIT/ML 1 ML SYRINGE SUBCUT SCH (06:13)
[2016-11-24] MEDS: COLCHICINE 0.6 MG TABLET PO SCH (06:13)
[2016-11-24 07:52] VITALS: BP 116/56
[2016-11-24] MEDS: CLOPIDOGREL BISULFATE 75 MG TABLET PO SCH (09:06)
[2016-11-24] MEDS: DIGOXIN 0.125 MG TABLET PO SCH (09:07)
[2016-11-24] MEDS: DILTIAZEM HCL 120 MG CAP.SR.24H PO SCH (09:10)
[2016-11-24] MEDS ORDERED: PREDNISONE 20 MG TABLET PO SCH (10:00)
--- NOTE | 2016-11-24 10:09 | Physician Advisory Note ---
Physician Advisor ProgressNote .: Pursuant to the plan for [facility], I have reviewed the medical record for this patient. Physician Advisor Statement: Possible documentation opportunities if attending agrees: 1. "hyponatremia, likely due to " (was 140 at last check earlier this mo. ) 2. "chronic Afib" or "paroxysmal Afib"? - need type specified now. 3. See status recommendation below. As always, if concerned about any unstable VS or abnormal labs, please comment on them & note what doing about them, & please document each day the potential clinical problems you are concerned could occur if pt not kept in hospital for tx at this time. Discussion: 81yo female w/ chronic co-morbidities including __ Afib, TIA, HTN, RA, osteopenia, chronic pain, fibromyalgia - on chronic prednisone 7.5mg daily, Humira, daily colchicine, Mobic - presented 11/21 PM to ED w/LUE pain, HR 102, Na 134.1, WBC 10.0 Attending ordered prn IV morphine, tele, PT/OT, O2 2L, f/u labs. Status: Initially should have been Outpt Obs. Acute shoulder pain, unclear source. Not needing frequent IV morphine. No abx given while awaiting clarification of acute process. Next day, 11/22, she still had hyponatremia & had developed a significant leukocytosis, without antecedent acute steroid administration, which could be concerning for developing acute bacterial infxn. Ortho was consulted. Sx improved after aspiration of 20ml turbid yellow fluid on 11/23 which was (+) for UA crystals & CPPD crystals. Pt unable to take NSAIDS per attending. F/u CBC & Na labs ordered. At this point, attending felt pt needed to be monitored closely in hospital while awaiting cx results, in case of infxn (especially given the leukocytosis on fluid study, underlying immune compromise), & to be sure she responded sufficiently to colchicine; might need (higher dose) steroids acutely for adequate response. Therefore, a 3rd MN was felt clinically necessary to protect pt's health, safety, & medical condition. Appropriate to consider change to Inpt status, even if she is able to be d/c'd later today. Thanks for your help with documentation accuracy/specificity improvement! Leonie Nassar MD [facility] Physician Advisor, Fellow of [facility]
--- NOTE | 2016-11-24 12:58 | PDOC DISCHARGE SUMMARY ---
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 present on arthrocentesis (2) HTN (hypertension) Is this a current diagnosis for this admission?: Yes (3) Afib Is this a current diagnosis for this admission?: Yes (4) Chest pain Is this a current diagnosis for this admission?: Yes (5) Rheumatoid arthritis Is this a current diagnosis for this admission?: Yes (6) COPD (chronic obstructive pulmonary disease) Is this a current diagnosis for this admission?: Yes - Additional Information Resuscitation Status: Full Code Discharge Diet: Cardiac Discharge Activity: Activity As Tolerated Home Medications: Adalimumab [Humira] 40 mg SQ TH@1000 11/22/16 Ascorbate Calcium [Vitamin C] 500 mg PO DAILY 11/22/16 Calcium Carbonate/Vitamin D3 [Calcium 600 + Vit D 400 Tablet] 1 tab PO DAILY Clopidogrel Bisulfate [Plavix 75 mg Tablet] 75 mg PO DAILY 11/22/16 Colchicine [Colchicine 0.6 mg Tablet] 0.6 mg PO DAILY 11/22/16 Cyclosporine 0.05% Oph Emulsio [Restasis 0.05% Oph Emulsion Pf 0.4 ml] 1 drop OU DAILY 11/22/16 Digoxin [Lanoxin 0.125 mg Tablet] 0.125 mg PO MOWEFR@1000 11/22/16 Diltiazem HCl [Diltiazem 12Hr ER] 120 mg PO Q12 11/22/16 Ergocalciferol (Vitamin D2) [Vitamin D2] 50,000 unit PO D6CFMSM 11/22/16 Fluticasone Propionate [Flonase Nasal [place] 50 Mcg/[place] 16 gm] 1 spray NASL DAILY 11/22/16 Fluticasone/Salmeterol [Advair 100-50 Diskus 14 Dose/Diskus] 1 inh IH Q12 Gabapentin [Neurontin 300 mg Capsule] 300 mg PO Q8 11/22/16 Lansoprazole [Prevacid 15 mg Odt Tablet] 15 mg PO DAILY 11/22/16 Magnesium Oxide [Magnesium] 400 mg PO Q8 11/22/16 Meclizine HCl [Antivert 25 mg Tablet] 25 mg PO Q8HP PRN 11/22/16 Meloxicam [Mobic 7.5 mg Tablet] 7.5 mg PO DAILY 11/22/16 Montelukast Sodium [Singulair 10 mg Tablet] 10 mg PO DAILY 11/22/16 Multivits-Min/Iron/FA/Lutein [Centrum Silver Women Tablet] 1 each PO DAILY 11/22 Oxycodone HCl [Oxy-Ir 5 mg Tablet] 2.5 mg PO Q4HP PRN 11/22/16 Prednisone [Deltasone 5 mg Tablet] 7.5 mg PO DAILY 11/22/16 Sennosides [Senna] 8.6 mg PO QAM 11/22/16 Simethicone [Gas-X] 80 mg PO Q6HP PRN 11/22/16 Prednisone [Deltasone 20 mg Tablet] 10 mg PO DAILY #40 tablet 11/24/16 History of Present Illness History of Present Illness: ARMANDO MANLEY is a 81 year old female who has a history of TIA who was admitted with acute onset left shoulder pain. There is concerned this may represent a TIA initially by emergency physician however pain is reproducible. Hospital Course Hospital Course: 81-year-old female who presented with acute onset of left shoulder pain. Patient was admitted and observed overnight. The patient had worsening swelling of her left shoulder and she underwent arthrocentesis by orthopedic surgery. Both uric acid and CPPD crystals were present consistent with an acute out and pseudogout flare. Patient was put on cultures seen and with previous surgery asked that we observe the patient overnight to make certain there is no obvious infection given the elevated white blood cell count on her arthrocentesis. Patient's cultures were negative after 24 hours is felt that it 's unlikely this is an acute infection most likely reps is just a gout and pseudogout flare. She is started on a prednisone taper and will be sent home with that. Her milligrams all were stable during this hospitalization. Physical Exam Vital Signs: Temp Pulse Resp BP Pulse Ox 97.7 F 76 18 116/56 L 96 11/24/16 12:01 11/24/16 12:01 11/24/16 12:01 11/24/16 07:28 11/24/16 12:01 Intake & Output 0211/24/16 11/25/16 06:59 06:59 06:59 Intake Total 1028 1688 Output Total 1000 2350 Balance 28 -662 Weight 68.5 kg 68.4 kg General appearance: PRESENT: no acute distress Eye exam: PRESENT: conjunctiva pink. ABSENT: scleral icterus Mouth exam: PRESENT: moist, tongue midline Neck exam: ABSENT: JVD Respiratory exam: PRESENT: clear to auscultation keysha. ABSENT: rales, rhonchi, wheezes Cardiovascular exam: PRESENT: RRR. ABSENT: diastolic murmur, rubs, systolic murmur GI/Abdominal exam: PRESENT: normal bowel sounds, soft. ABSENT: distended, guarding, mass, organolmegaly, rebound, tenderness Extremities exam: PRESENT: other - Swelling of the left shoulder but no erythema.. ABSENT: calf tenderness, clubbing, pedal edema Neurological exam: PRESENT: alert, awake, oriented to person, oriented to place , oriented to time, oriented to situation Psychiatric exam: PRESENT: appropriate affect Skin exam: PRESENT: dry, intact, warm. ABSENT: cyanosis, rash Results Laboratory Results: 11/24/16 04:28 11/24/16 04:28 11/24/16 11/24/16 04:28 04:28 WBC 7.1 RBC 3.94 Hgb 12.0 Hct 35.5 L MCV 90 MCH 30.5 MCHC 33.9 RDW 14.1 H Plt Count 157 Seg Neutrophils % 59.0 Lymphocytes % 25.0 Monocytes % 12.8 Eosinophils % 2.3 Basophils % 0.9 Absolute Neutrophils 4.2 Absolute Lymphocytes 1.8 Absolute Monocytes 0.9 Absolute Eosinophils 0.2 Absolute Basophils 0.1 Sodium 133.2 L Potassium 4.2 Chloride 101 Carbon Dioxide 25 Anion Gap 7 BUN 10 Creatinine 0.72 Est GFR ( Amer) > 60 Est GFR (Non-Af Amer) > 60 Glucose 90 Calcium 9.2 11/22/16 11/22/16 11/22/16 01:45 01:45 07:39 Creatine Kinase 74 CK-MB (CK-2) 0.48 1.88 Troponin I 0.020 0.046 11/22/16 11/22/16 11/22/16 07:39 14:37 14:37 Creatine Kinase 119 157 H CK-MB (CK-2) 2.01 Troponin I 0.064 Impressions: Carotid Doppler Study 11/21/16 00:00 IMPRESSION: NO HEMODYNAMICALLY SIGNIFICANT STENOSIS RIGHT INTERNAL CAROTID ARTERY. APPROACHING 50% STENOSIS LEFT PROXIMAL INTERNAL CAROTID ARTERY. Shoulder X-Ray 11/21/16 00:00 IMPRESSION: NO RADIOGRAPHIC EVIDENCE OF ACUTE INJURY. MINIMAL OSTEOARTHRITIS. Head CT 11/21/16 18:28 IMPRESSION: NO ACUTE INTRACRANIAL PROCESS. NO SIGNIFICANT CHANGE FROM PRIOR STUDY. Qualifiers PATEINT BEING DISCHARGED WITH ANY OF THE FOLLOWING DIAGNOSIS?: No Plan Discharge Plan: Patient is discharged home in stable condition. Will follow up with her primary care in 1-2 weeks. Time Spent: Less than 30 Minutes
== END 2016-11-24 12:28 | disposition home or self-care (01) ==
LOC: ER 17:51 → INTOOBSV 20:57 → EH 20:57 → 3W 11-22 04:07
PROVIDERS: ADMIT Internal Medicine; ATTEND Internal Medicine
PROC: 0R9K3ZZ Drainage of Left Shoulder Joint, Percutaneous Approach (ICD-10-PCS; principal; 2016-11-23)
DX: M11.9 Crystal arthropathy, unspecified (principal); M10.012 Idiopathic gout, left shoulder; I10 Essential (primary) hypertension; I48.91 Unspecified atrial fibrillation; R07.9 Chest pain, unspecified; M06.9 Rheumatoid arthritis, unspecified; J44.9 Chronic obstructive pulmonary disease, unspecified; Z86.73 Personal history of transient ischemic attack (TIA), and cerebral infarction without residual deficits; Z79.02 Long term (current) use of antithrombotics/antiplatelets; R51 Headache; R13.11 Dysphagia, oral phase; M79.7 Fibromyalgia; M75.92 Shoulder lesion, unspecified, left shoulder
CPT/HCPCS: 20610; 93005 ×2; 99285; 36415 ×3; 87205; 87070; 82553 ×2; 82550 ×2; 85025 ×3; 89050; 89060; 87075; 80048 ×2; 80053; 81001; 84484 ×2; 80061; 93880; 73030; 70450; 93010 ×2; 97116; 97163; 97167; G0378 ×2; A9270 ×19; J1644 ×3; J2270; J3490 ×3; G8978; G8979; G8987; G8988; J7512

== ENCOUNTER → 2017-01-27 | Outpatient (CLI) | payer MEDICARE, BC | LOC: RAD 17:59 | PROVIDERS: ATTEND Family Medicine | DX: J20.9 Acute bronchitis, unspecified (principal); R05 Cough; R06.2 Wheezing | CPT/HCPCS: 71020 ==

== ENCOUNTER 2017-05-31 01:10 | Emergency (ER) | payer MEDICARE, BC ==
[2017-05-31] MEDS ORDERED: MORPHINE SULFATE 10 MG/ML INJ IV ONE ×2 (02:43→04:07)
[2017-05-31] MEDS ORDERED: METHYLPREDNISOLONE INJ 125 MG/2 ML SDV IV ONE (02:47)
--- NOTE | 2017-05-31 02:52 | ER Document Report ---
ED General - General Chief Complaint: Neck Pain < 24hrs old Stated Complaint: NECK AND SHOULDER PAIN Time Seen by Provider: 05/31/17 02:33 Notes: Patient is an 82-year-old female presents with complaint of severe neck pain. Says pain goes from her neck and into her head. No fevers. No vomiting. No weakness or numbness into the arms or hands. She had pain for started shoulders and worked way into her neck. Pain is mostly on the right side of her neck. She has similar pain in her shoulder in November and was admitted. At that time they checked a fluid in her shoulder and it was consistent with gout and pseudogout. She is unsure if the same thing. Pain is been gradually worsening. No trauma no injuries. No other complaints at this time. TRAVEL OUTSIDE OF THE [place] IN LAST 30 DAYS: No - Related Data Allergies/Adverse Reactions: ciprofloxacin [From Cipro] Allergy (Verified 05/31/17 01:16) ibuprofen Allergy (Verified 11/21/16 18:32) methotrexate [Methotrexate] Allergy (Verified 05/31/17 01:16) Hives NSAIDS (Non-Steroidal Anti-Inflamma [Nsaids] Allergy (Verified 05/31/17 01:16) aspirin [Aspirin] Adverse Reaction (Mild, Verified 05/31/17 01:16) Nausea codeine [Codeine] Adverse Reaction (Verified 05/31/17 01:16) hydrocodone [Hydrocodone] Adverse Reaction (Verified 05/31/17 01:16) oxycodone HCl [From Percocet] Adverse Reaction (Verified 05/31/17 01:16) Dizziness Sulfa (Sulfonamide Antibiotics) Adverse Reaction (Verified 05/31/17 01:16) Past Medical History - Social History Smoking Status: Unknown if Ever Smoked Frequency of alcohol use: None Drug Abuse: None Family History: Reviewed & Not Pertinent, Hypertension Patient has suicidal ideation: No Patient has homicidal ideation: No - Past Medical History Cardiac Medical History: Reports: Hx Atrial Fibrillation, Hx Hypercholesterolemia, Hx Hypertension Pulmonary Medical History: Reports: Hx Asthma, Hx Bronchitis, Hx COPD Denies: Hx Tuberculosis Neurological Medical History: Denies: Hx Seizures Renal/ Medical History: Denies: Hx Peritoneal Dialysis GI Medical History: Reports: Hx Gastroesophageal Reflux Disease Musculoskeltal Medical History: Reports Hx Arthritis, Reports Hx Fibromyalgia Psychiatric Medical History: Reports: Hx Depression Past Surgical History: Reports: Hx Appendectomy, Hx Hysterectomy, Hx Orthopedic Surgery - cervical fusion, Hx Tonsillectomy, Hx Tubal Ligation. Denies: Hx Pacemaker - Immunizations Immunizations up to date: Yes Hx Diphtheria, Pertussis, Tetanus Vaccination: Yes Hx Pneumococcal Vaccination: 08/13/14 Review of Systems - Review of Systems Notes: My Normal Review Basic REVIEW OF SYSTEMS: CONSTITUTIONAL : Denies fever, chills, or sweats. Denies recent illness. EENT: Neck pain CARDIOVASCULAR: Denies chest pain. RESPIRATORY: Denies cough, cold, or chest congestion. Denies shortness of breath, difficulty breathing, or wheezing.Denies constipation. Last BM: MUSCULOSKELETAL: neck Pain SKIN: Denies rash or skin lesions. NEUROLOGICAL: Denies altered mental status or loss of consciousness. Headache. Denies weakness or paralysis or loss of use of either side. Denies problems with gait or speech. Denies sensory or motor loss. ALL OTHER SYSTEMS REVIEWED AND NEGATIVE. Physical Exam - Vital signs Vitals: Temp Pulse Resp BP Pulse Ox 98.4 F 92 18 150/68 H 99 05/31/17 01:16 05/31/17 01:16 05/31/17 01:16 05/31/17 01:16 05/31/17 01:16 - Notes Notes: General Appearance: Well nourished, alert, cooperative, no acute distress, severe obvious discomfort. Vitals: reviewed, See vital signs table. Head: no swelling or tenderness to the head Eyes: PERRL, EOMI, Conjuctiva clear Mouth: No decreasd moisture Neck: tenderness to plapation over the midline of the neck Lungs: No wheezing, No rales, No rhonci, No accessory muscle use, good air exchange bilaterally. Heart: Normal rate, Regular rythm, No murmur, no rub Extremities: strength 5/5 in all extremities, good pulses in all extremities, no swelling or tenderness in the extremities, no edema. Skin: warm, dry, appropriate color, no rash Neuro: speech clear, oriented x 3, normal affect, responds appropriately to questions. Patient has good strength in upper extremities. Distal sensation intact. Cranial nerves II through XII are intact. Course - Re-evaluation Re-evalutation: 05/31/17 04:08 Patient's pain is significantly improved after morphine. She still has some neck pain but says that it is bearable now. I will give her another small dose of morphine which will help with the pain even more improved so that when she gets her CT scan it will not be as painful when she moves. 05/31/17 07:00 Patient's pain is much improved. She looks well. CT Fior of the neck was obtained to make sure the patient have any signs of arterial dissection being that her pain was so severe in her neck and worse with movements. CTA of the neck and head were negative. Patient's pain is easily reproducible palpation movement. I do suspect this is musculoskeletal. She has a previous history of previous neck surgery. Informed her and her grandson that she most likely needs a MRI of her neck. They agree to follow-up with her primary care doctor for reevaluation and for referral for outpatient MRI. Patient does have oxycodone. She is only able take 2.5 mg at a time because otherwise makes her very sick and feeling well. She has taken Ultram in the past and says it did help her in the past. I will prescribe Ultram as this most likely will have less of a sedated for nausea side effect and hopefully will help better control her pain. She has no neurologic deficits in her upper or lower extremities. She otherwise looks well. I feel she is safe to be discharged home. I encouraged him to return to ER if she has worsening intractable pain, weakness or numbness in her extremities, or she feels that she is worsening. Patient and her grandson agree with plan and she will be discharged home. Dictation of this chart was performed using voice recognition software; therefore, there may be some unintended grammatical errors. - Vital Signs Vital signs: Temp Pulse Resp BP Pulse Ox 98.7 F 90 19 147/58 H 90 L 05/31/17 05:59 05/31/17 05:59 05/31/17 05:59 05/31/17 05:59 05/31/17 05:59 - Laboratory Result Diagrams: 05/31/17 03:00 05/31/17 03:00 Laboratory results interpreted by me: 05/31/17 05/31/17 03:00 03:00 Hgb 11.6 L Hct 34.7 L RDW 15.8 H Sodium 133.4 L Chloride 97 L Discharge - Discharge Clinical Impression: Neck pain Headache Qualifiers: Headache type: unspecified Headache chronicity pattern: acute headache Intractability: not intractable Qualified Code(s): R51 - Headache Condition: Good Disposition: HOME, SELF-CARE Instructions: Oral Narcotic Medication ([facility]) Additional Instructions: We performed a CT angiogram of your neck and head. These tests were negative for any abnormality. Please stop taking oxycodone. Please start taking the Ultram instead. Please follow-up with your doctor this week for reevaluation and possible referral for an MRI. Return to the ER if you have worsening of your symptoms. Prescriptions: Tramadol HCl [Ultram 50 mg Tablet] 50 mg PO Q6HP PRN #20 tablet PRN Reason: Referrals: LOBITO HYMAN MD [Primary Care Provider] - Follow up tomorrow
[2017-05-31 03:29] LABS: ANION GAP 10 (5-19); BLOOD UREA NITROGEN 14 mg/dL (7-20); CALCIUM 9.2 mg/dL (8.4-10.2); CARBON DIOXIDE 26 mmol/L (22-30); CHLORIDE 97 mmol/L (98-107); CREATININE RESULT 0.81 mg/dL (0.52-1.25); GLUCOSE 84 mg/dL (75-110); POTASSIUM 4.1 mmol/L (3.6-5.0); SODIUM 133.4 mmol/L (137-145)
[2017-05-31 03:35] LABS: ABSOLUTE EOSINOPHILS # (AUTO) 0.1 10^3/uL (0.0-0.6); ABSOLUTE LYMPHOCYTES (AUTO) 1.7 10^3/uL (0.5-4.7); ABSOLUTE MONOCYTES (AUTO) 0.9 10^3/uL (0.1-1.4); ABSOLUTE NEUT (AUTO) 5.9 10^3/uL (1.7-8.2); BASOPHILS % (AUTO) 0.5 % (0-2); EOSINOPHILS % (AUTO) 1.3 % (0-6); HEMATOCRIT 34.7 % (36.0-47.0); HEMOGLOBIN 11.6 g/dL (12.0-15.5); HGB HCT DIFFERENCE 0.1; LYMPHOCYTES % (AUTO) 19.8 % (13-45); MEAN CORPUSCULAR HGB CONC 33.3 g/dL (32.0-36.0); MEAN CORPUSCULAR VOLUME 90 fl (80-97); MONOCYTES % (AUTO) 10.3 % (3-13); RED BLOOD COUNT 3.86 10^6/uL (3.72-5.28); RED CELL DISTRIBUTION WIDTH 15.8 % (11.5-14.0); SEGMENTED NEUTROPHILS % (AUTO) 68.1 % (42-78); WHITE BLOOD COUNT 8.6 10^3/uL (4.0-10.5)
[2017-05-31] MEDS ORDERED: NORMAL SALINE 500 ML IV ONE (03:59)
--- NOTE | 2017-05-31 04:55 | RADIOLOGY REPORT (SQ) ---
EXAM DESCRIPTION: CTA HEAD COMPLETED DATE/TIME: 05/31/2017 4:37 am REASON FOR STUDY: neck pain with headache COMPARISON: CTA neck 01/15/2014. CT head 11/21/2016. TECHNIQUE: Post IV contrast scanning, thin section axial imaging through the brain to evaluate the a rterial structures. Source and MIP images are saved and reviewed on PACS. Advanced 3D imaging as volume-rendering, MIPs, SSD performed? yes All CT scanners at this facility use dose modulation, iterative reconstruction, and/or weight based d osing when appropriate to reduce radiation dose to as low as reasonably achievable (ALARA). [facility]: Dose Right [facility]: CareDose [facility]: Dose Right [facility]: Teradose 4D [facility]: Aisle50 CONTRAST TYPE AND DOSE: 70 mL Isovue 370- low osmolar. RENAL FUNCTION: Creatinine 0.81 LIMITATIONS: None. FINDINGS: [place]: The anterior, middle, posterior cerebral arteries are all patent. No ev idence of aneurysm or focal stenosis. POSTERIOR CIRCULATION: The distal vertebral arteries are patent as is the basilar artery. No aneurysm . BRAIN: No enhancing lesions as visualized. BONES: Intact as visualized. SINUSES: No fluid or mucosal thickening. IMPRESSION: No CTA evidence of stenosis or aneurysm of the [place] of [place]. TECHNICAL DOCUMENTATION: JOB ID: [id number] CT-64 Quality ID # [id number]: Final reports with documentation of one or more dose reduction techniques (e.g., Au tomated exposure control, adjustment of the mA and/or kV according to patient size, use of iterative reconstruction technique) 2010 [employer] All Rights Reserved
--- NOTE | 2017-05-31 05:07 | RADIOLOGY REPORT (SQ) ---
EXAM DESCRIPTION: CTA NECK COMPLETED DATE/TIME: 05/31/2017 4:37 am REASON FOR STUDY: neck pain with headache COMPARISON: CTA neck 01/15/2014. TECHNIQUE: Axial dynamic scanning technique with dynamic contrast enhancement through the extra-fuel efficient aircraft designer nial carotid and vertebral arteries. Multiplanar reconstruction. 3-D MIPS and Volume-rendered imag es acquired at the workstation and saved to PACS. Images are reviewed in soft tissue, bone, lung w indows. All CT scanners at this facility use dose modulation, iterative reconstruction, and/or weight based d osing when appropriate to reduce radiation dose to as low as reasonably achievable (ALARA). [facility]: Dose Right [facility]: CareDose [facility]: Dose Right [facility]: Teradose 4D [facility]: [employer] CONTRAST TYPE AND DOSE: contrast/concentration: Isovue 370.00 mg/ml; Total Contrast Delivered: 70.0 ml; Total Saline Delivered: 75.0 ml RENAL FUNCTION: Creatinine 0.81. LIMITATIONS: None. FINDINGS: AORTIC ARCH: Normal three-vessel origin. Bilateral subclavian arteries are patent. No d issection. RIGHT CAROTIDS: Patent common, internal and external carotid arteries without suggestion of significa nt stenosis. No dissection. RIGHT VERTEBRAL: Patent. No dissection. LEFT CAROTIDS: Patent common, internal and external carotid arteries without suggestion of significan t stenosis. Atherosclerotic calcification at the proximal internal carotid artery. No dissection. LEFT VERTEBRAL: Patent. No dissection. OTHER: Multilevel degenerative changes in the spine. Pleural scarring at the visualized lung apices. OTHER: 3-D reconstructions confirm findings. IMPRESSION: Unremarkable CTA of the extracranial carotid and vertebral arteries. COMMENT: Quality ID #[id number]: Measurements of distal internal carotid diameter were used as the denomina tor for stenosis measurement. TECHNICAL DOCUMENTATION: JOB ID: [id number] [facility] Quality ID # 436: Final reports with documentation of one or more dose reduction techniques (e.g., Au tomated exposure control, adjustment of the mA and/or kV according to patient size, use of iterative reconstruction technique) 2010 [id number]- All Rights Reserved
[2017-05-31] MEDS ORDERED: TRAMADOL HCL 50 MG TABLET PO ONE (05:28)
[2017-05-31 06:00] VITALS: BP 147/58
== END 2017-05-31 06:13 | disposition home or self-care (01) ==
LOC: ER 01:10
DX: M54.2 Cervicalgia (principal); R51 Headache; M25.511 Pain in right shoulder; I48.91 Unspecified atrial fibrillation; E78.00 Pure hypercholesterolemia, unspecified; I10 Essential (primary) hypertension; J44.9 Chronic obstructive pulmonary disease, unspecified; J45.909 Unspecified asthma, uncomplicated; K21.9 Gastro-esophageal reflux disease without esophagitis; Z88.3 Allergy status to other anti-infective agents; Z88.6 Allergy status to analgesic agent; Z88.2 Allergy status to sulfonamides; Z88.8 Allergy status to other drugs, medicaments and biological substances; Z90.710 Acquired absence of both cervix and uterus; Z98.1 Arthrodesis status
CPT/HCPCS: 96376; 99284; 96361; 96374; 96375; 36415; 85025; 80048; 70496; 70498; J2930; J2270; J7040; A9270

== ENCOUNTER → 2017-11-13 | Outpatient (CLI) | payer MEDICARE, BC ==
[2017-11-13 13:06] LABS: ANION GAP 8 (5-19); BLOOD UREA NITROGEN 18 mg/dL (7-20); CALCIUM 9.8 mg/dL (8.4-10.2); CARBON DIOXIDE 29 mmol/L (22-30); CHLORIDE 99 mmol/L (98-107); CHOLESTEROL 187.35 mg/dL (0-200); GLUCOSE 89 mg/dL (75-110); POTASSIUM 5.1 mmol/L (3.6-5.0); SODIUM 135.6 mmol/L (137-145); TRIGLYCERIDES 81 mg/dL (<150)
[2017-11-13 13:17] LABS: DIRECT LDL 93 mg/dL (<100)
== END ==
LOC: OD 12:16
PROVIDERS: ATTEND Family Medicine
DX: E78.2 Mixed hyperlipidemia (principal); I10 Essential (primary) hypertension; D64.9 Anemia, unspecified; Z79.899 Other long term (current) drug therapy
CPT/HCPCS: 36415; 80048; 80061; 83036; 84443

== ENCOUNTER → 2018-05-24 | Outpatient (CLI) | payer MEDICARE, BC ==
[2018-05-24 09:48] LABS: ABSOLUTE BASOPHILS # (AUTO) 0.1 10^3/uL (0.0-0.2); ABSOLUTE EOSINOPHILS # (AUTO) 0.2 10^3/uL (0.0-0.6); ABSOLUTE LYMPHOCYTES (AUTO) 1.9 10^3/uL (0.5-4.7); ABSOLUTE MONOCYTES (AUTO) 0.6 10^3/uL (0.1-1.4); ABSOLUTE NEUT (AUTO) 6.3 10^3/uL (1.7-8.2); EOSINOPHILS % (AUTO) 2.5 % (0-6); HEMATOCRIT 38.1 % (36.0-47.0); HEMOGLOBIN 12.7 g/dL (12.0-15.5); LYMPHOCYTES % (AUTO) 21.2 % (13-45); MEAN CORPUSCULAR HEMOGLOBIN 28.7 pg (27.0-33.4); MEAN CORPUSCULAR HGB CONC 33.5 g/dL (32.0-36.0); MEAN CORPUSCULAR VOLUME 86 fl (80-97); MONOCYTES % (AUTO) 6.5 % (3-13); PLATELET COUNT 200 10^3/uL (150-450); RED BLOOD COUNT 4.44 10^6/uL (3.72-5.28); RED CELL DISTRIBUTION WIDTH 18.6 % (11.5-14.0); SEGMENTED NEUTROPHILS % (AUTO) 68.8 % (42-78); TOTAL CELLS COUNTED % (AUTO) 100 %; WHITE BLOOD COUNT 9.2 10^3/uL (4.0-10.5)
--- NOTE | 2018-05-24 10:23 | EKG REPORT ---
SEVERITY:- BORDERLINE ECG - SINUS RHYTHM BORDERLINE LEFT AXIS DEVIATION BORDERLINE T ABNORMALITIES, LATERAL LEADS : Confirmed by: Shahbaz Ordaz 24-May-2018 10:22:49
[2018-05-24 10:31] LABS: ANION GAP 11 (5-19); BLOOD UREA NITROGEN 17 mg/dL (7-20); CALCIUM 9.6 mg/dL (8.4-10.2); CARBON DIOXIDE 27 mmol/L (22-30); CHLORIDE 99 mmol/L (98-107); GLUCOSE 86 mg/dL (75-110); POTASSIUM 4.1 mmol/L (3.6-5.0); SODIUM 136.9 mmol/L (137-145)
--- NOTE | 2018-05-24 10:50 | RADIOLOGY REPORT (SQ) ---
EXAM DESCRIPTION: CHEST PA/LATERAL COMPLETED DATE/TIME: 05/24/2018 10:22 am REASON FOR STUDY: PRE-OP COMPARISON: 01/27/2017 EXAM PARAMETERS: NUMBER OF VIEWS: two views TECHNIQUE: Digital Frontal and Lateral radiographic views of the chest acquired. RADIATION DOSE: NA LIMITATIONS: none FINDINGS: LUNGS AND PLEURA: Stable mild prominent interstitial markings in the lungs. Prior granul omatous disease. No acute pulmonary findings. Elevation of the right hemidiaphragm, stable finding. No pneumothorax or pleural effusion. MEDIASTINUM AND HILAR STRUCTURES: No masses or contour abnormalities. HEART AND VASCULAR STRUCTURES: Heart normal size. No evidence for failure. BONES: The osseous structures are stable in appearance. HARDWARE: None in the chest. OTHER: No other significant finding. IMPRESSION: 1 No significant interval changes since the prior examination dated 01/27/2017. Stable m ild chronic changes in the lungs. No acute findings. 2 Prior granulomatous disease. TECHNICAL DOCUMENTATION: JOB ID: [id number] [employer]- All Rights Reserved Reading location - IP/workstation name: [email or web address]
[2018-05-24 16:35] LABS: APPEARANCE,URINE SLIGHTLY-CLOUDY; BILIRUBIN,URINE NEGATIVE (NEGATIVE); COLOR,URINE YELLOW; GLUCOSE, URINE NEGATIVE (NEGATIVE); KETONES,URINE NEGATIVE (NEGATIVE); LEUKOCYTE ESTERASE,URINE MODERATE (NEGATIVE); NITRITE,URINE NEGATIVE (NEGATIVE); PROTEIN,URINE NEGATIVE (NEGATIVE); URINE SPECIFIC GRAVITY 1.013; UROBILINOGEN,URINE NEGATIVE mg/dL (<2.0)
== END ==
LOC: OD 08:58
PROVIDERS: ATTEND Orthopaedic Surgery
DX: Z01.810 Encounter for preprocedural cardiovascular examination (principal); M16.12 Unilateral primary osteoarthritis, left hip
CPT/HCPCS: 36415; 71046; 80048; 81001; 83036; 85025; 93005; 93010

== ENCOUNTER 2018-06-21 11:15 | Inpatient (IN) | payer MEDICARE, BC ==
[~2018-06-21 11:15] MED LIST: CEFAZOLIN INJ 1 GM VIAL IV PRN; LACTATED RINGERS 1000 ML IV PRN; LIDOCAINE 0.5% INJ-PF (5 MG/ML) 50 ML SDV SUBCUT PRN; VANCOMYCIN HCL 1,000 MG in DEXTROSE 5%-WATER 250 ML IV PRN
[2018-06-25] MEDS ORDERED: VANCOMYCIN HCL 1,000 MG in DEXTROSE 5%-WATER 250 ML IV PRN (11:06)
[2018-06-28] MEDS ORDERED: LIDOCAINE 0.5% INJ-PF (5 MG/ML) 50 ML SDV SUBCUT PRN (05:00)
[2018-06-28] MEDS ORDERED: LANSOPRAZOLE 15 MG TAB.RAP.DR PO PRN (05:00)
[2018-06-28] MEDS ORDERED: IBUPROFEN 800 MG/NS 250 ML IV PRN ×2 (05:00)
[2018-06-28] MEDS ORDERED: OXYCODONE HCL SR 10 MG TABLET PO PRN (05:00)
[2018-06-28] MEDS ORDERED: LACTATED RINGERS 1000 ML IV PRN (05:00)
[2018-06-28] MEDS ORDERED: BUPIVACAINE INJ/PF LIPOSOME/PF 266 MG/20 ML SDV IJ PRN (05:00)
[2018-06-28] MEDS ORDERED: CEFAZOLIN 1 GM/D5W RTU 1 GM/50 ML RTUPB IV PRN (05:00)
[2018-06-28] MEDS ORDERED: OXYCODONE HCL SR 10 MG TABLET PO ONE (05:27)
[2018-06-28] MEDS ORDERED: LANSOPRAZOLE 15 MG TAB.RAP.DR ONE (05:27)
[2018-06-28] MEDS ORDERED: MIDAZOLAM 2 MG/2 ML INJ ONE (06:55)
[2018-06-28] MEDS ORDERED: LIDOCAINE 2% INJ-PF (20 MG/ML) 10 ML AMPUL ONE (06:55)
[2018-06-28] MEDS ORDERED: PROPOFOL INJ 200 MG/20 ML VIAL IV ONE (06:55)
[2018-06-28] MEDS ORDERED: FENTANYL CITRATE INJ/PF 100 MCG/2 ML AMPUL ONE (06:55)
[2018-06-28] MEDS ORDERED: TRANEXAMIC ACID INJ/PF 1,000 MG/10 ML SDV IV ONE ×3 (06:56→12:00)
[2018-06-28] MEDS ORDERED: EPHEDRINE SULFATE INJ 50 MG/1 ML AMPULE ONE (06:56)
[2018-06-28 07:19] LABS: INTERNATIONAL RATION (INR) 0.95; PROTHROMBIN TIME 13.1 SEC (11.4-15.4)
[2018-06-28 07:20] LABS: PARTIAL THROMBOPLASTIN TIME 25.9 SEC (23.5-35.8)
[2018-06-28] MEDS ORDERED: BUPIVACAINE HCL/DEX-WATER/PF 15 MG/2 ML AMPULE ONE (07:20)
[2018-06-28] MEDS ORDERED: CEFAZOLIN INJ 1 GM VIAL ONE (07:39)
[2018-06-28] MEDS ORDERED: THROMBIN (BOVINE) TOPICAL 20000 UNIT VIAL ONE (07:53)
[2018-06-28] MEDS ORDERED: THROMBIN (BOVINE) 5000 UNIT EPITAXIS KIT ONE (07:53)
[2018-06-28] MEDS ORDERED: BUPIVACAINE INJ/PF LIPOSOME/PF 266 MG/20 ML SDV ONE (07:54)
[2018-06-28] MEDS ORDERED: MORPHINE SULFATE 10 MG/ML INJ IV PRN ×4 (07:58→09:54)
[2018-06-28] MEDS ORDERED: DIPHENHYDRAMINE HCL 50 MG/ML VIAL IV PRN ×2 (07:58→09:54)
[2018-06-28] MEDS ORDERED: MEPERIDINE HCL/PF INJ 25 MG/1 ML DISP.SYRIN IV PRN (07:58)
[2018-06-28] MEDS ORDERED: PROMETHAZINE HCL INJ 25 MG/1 ML VIAL IV PRN ×2 (07:58)
[2018-06-28] MEDS ORDERED: FENTANYL CITRATE INJ/PF 100 MCG/2 ML AMPUL IV PRN ×3 (07:58)
[2018-06-28] MEDS ORDERED: OXYCODONE HCL IR 5 MG TABLET PO PRN ×2 (09:51→09:54)
[2018-06-28] MEDS ORDERED: MECLIZINE HCL 25 MG TABLET PO PRN (09:51)
--- NOTE | 2018-06-28 09:51 | Operative Report ---
Operative Report DATE OF SURGERY: 06/28/18 PREOPERATIVE DIAGNOSIS: Painful left proximal femoral hemiarthroplasty OPERATION: Conversion arthroplasty. Sciatic neuro lysis SURGEON: FLOR ESPINOSA ANESTHESIA: Spinal TISSUE REMOVED OR ALTERED: Cultures 2 to microbiology, hardware to CSS, frozen section and permanent sections to pathology ESTIMATED BLOOD LOSS: 50 PROCEDURE: Implants used: Femur: Existing [employer] hemiarthroplasty well fixed Acetabular shell: Simon hemispherical titanium shell Liner: 36 mm flat cross-link polyethylene liner, Simon Head: A 36 mm chrome cobalt head Priscilla +8.5 mm neck The patient is placed in a right lateral decubitus position on the operating table. The left lower extremity and hindquarter is prepped and draped in a sterile fashion. A curvilinear incision was made over the greater trochanter a posterior approach the hip was taken with a previous surgical approach. The sciatic nerve is identified coming out of the sciatic notch and traced down to the gluteal sling. Is protected throughout the course for the remainder of the case. Upon entering the hip capsule a milky type fluid is identified. This is sent for culture and sensitivity. A synovectomy was then performed and this is sent to pathology for frozen section. A diagnosis of no acute inflammation no malignancy is identified is returned from pathology. Preoperative sedimentation rate was 10 mm an hour. In light of this a decision was made to proceed with the conversion arthroplasty rather than resection arthroplasty which would have been indicated if this was an infected surgical bed.. The femoral head is dislocated and the femoral head is disimpacted from the stem.. Attention was next turned to the acetabulum. Soft tissues cleared off the acetabulum using electrocautery. The acetabulum was then prepared using a series of hemispherical reamers until a 52 millimeters reamer is seated. Subsequently a 52 millimeters [place] titanium hemispherical shell is impacted into position and secured with one screw. A standard flat 36 millimeters cross- link liner is impacted into the shell. Attention was next turned to the femur. A trial reduction was now performed using a 36 millimeters head with 8.5 neck. Preoperative leg length was recreated and is excellent anterior posterior stability. A decision was made to proceed with the above construct. All trial implants were removed. The wound is irrigated with pulsed lavage. the final chrome-cobalt head is impacted onto the trunnion. The hip was reduced. Wound is copiously irrigated with pulsed lavage. The wound is closed in layers using interrupted Vicryl followed by svetlana. A sterile dressing is applied and the patient's returned to recovery room in satisfactory patient.
[2018-06-28] MEDS ORDERED: ONDANSETRON 4 MG TAB.RAPDIS PO PRN (09:54)
[2018-06-28] MEDS ORDERED: MORPHINE SULFATE 10 MG/ML INJ IM PRN (09:54)
[2018-06-28] MEDS ORDERED: ACETAMINOPHEN 325 MG TABLET PO PRN (09:54)
[2018-06-28] MEDS ORDERED: ONDANSETRON HCL INJ/PF 4 MG/2 ML SDV IV PRN (09:54)
[2018-06-28] MEDS ORDERED: MAG HYDROX/AL HYDROX/SIMETH SUSP 30 ML UDCUP PO PRN (09:54)
[2018-06-28] MEDS ORDERED: ZOLPIDEM TARTRATE 5 MG TABLET PO PRN (09:54)
[2018-06-28] MEDS ORDERED: (PENDING PHARMACY ID) (Diltiazem Hcl [Diltiazem 12hr Er] 120 MG) PO SCH (10:00)
[2018-06-28] MEDS ORDERED: PREDNISONE 5 MG TABLET PO SCH (10:00)
[2018-06-28] MEDS ORDERED: CLOPIDOGREL BISULFATE 75 MG TABLET PO SCH (10:00)
[2018-06-28] MEDS ORDERED: PRENATAL VITAMIN W DHA CAPSULE PO SCH (10:00)
[2018-06-28] MEDS ORDERED: OXYCODONE HCL SR 10 MG TABLET PO SCH (10:00)
[2018-06-28] MEDS ORDERED: SENNOSIDES/DOCUSATE 8.6-50 MG 1 EACH TABLET PO SCH (10:00)
[2018-06-28] MEDS ORDERED: MONTELUKAST SODIUM 10 MG TABLET PO SCH (10:00)
[2018-06-28] MEDS ORDERED: LANSOPRAZOLE 15 MG TAB.RAP.DR PO SCH (10:00)
[2018-06-28] MEDS ORDERED: COLCHICINE 0.6 MG TABLET PO SCH (10:00)
[2018-06-28] MEDS ORDERED: DIGOXIN 0.125 MG TABLET PO SCH (10:00)
--- NOTE | 2018-06-28 11:39 | RADIOLOGY REPORT (SQ) ---
EXAM DESCRIPTION: PELVIS AP COMPLETED DATE/TIME: 06/28/2018 11:00 am REASON FOR STUDY: Post Op Long Cassette in PACU M16.12 UNILATERAL PRIMARY OSTEOARTHRITIS, LEFT HIP COMPARISON: AP pelvis 10/05/2012 NUMBER OF VIEWS: One view TECHNIQUE: Digital radiographic images of the pelvis post-procedure LIMITATIONS: None. FINDINGS: BONES: No worrisome or unexpected findings post-procedure. DEVICE: Left hip replacement with new acetabular component anchored with a screw. Femoral component is similar compared to 10/05/2012 SOFT TISSUES: No worrisome findings. Expected postoperative soft tissue changes. IMPRESSION: SATISFACTORY POSTOPERATIVE PELVIS. TECHNICAL DOCUMENTATION: JOB ID: [id number] [employer]- All Rights Reserved Reading location - IP/workstation name: [email or web address]
[2018-06-28] MEDS ORDERED: LORAZEPAM 0.5 MG TABLET PO SCH (12:00)
[2018-06-28] MEDS ORDERED: GABAPENTIN 300 MG CAPSULE PO SCH (14:00)
[2018-06-28] MEDS ORDERED: PHENYLEPHRINE HCL INJ/PF 10 MG/1 ML SDV ONE (14:08)
[2018-06-28] MEDS ORDERED: ONDANSETRON HCL INJ/PF 4 MG/2 ML SDV ONE (14:08)
[2018-06-28] MEDS: RINGERS SOLUTION,LACTATED 1,000 ML IV PRN ×2 (15:35→23:26)
[2018-06-28] MEDS: IBUPROFEN 800 MG in NORMAL SALINE 250 ML IV SCH (16:15)
[2018-06-28] MEDS: LORAZEPAM 0.5 MG TABLET PO SCH (18:34)
[2018-06-28] MEDS: SENNOSIDES/DOCUSATE 8.6-50 MG 1 EACH TABLET PO SCH (18:36)
[2018-06-28] MEDS: CYCLOSPORINE 0.05% OPH EMULSIO 0.4 ML DROPERETTE OU SCH (18:36)
[2018-06-28] MEDS ORDERED: VANCOMYCIN HCL 1,000 MG in DEXTROSE 5%-WATER 250 ML IV ONE (21:54)
[2018-06-28] MEDS: DILTIAZEM HCL 120 MG CAP.SR.24H PO SCH (23:24)
[2018-06-28] MEDS: GABAPENTIN 300 MG CAPSULE PO SCH (23:24)
[2018-06-28] MEDS: RALOXIFENE HCL 60 MG TABLET PO SCH (23:24)
[2018-06-28] MEDS: OXYCODONE HCL SR 10 MG TABLET PO SCH (23:25)
[2018-06-29] MEDS: LORAZEPAM 0.5 MG TABLET PO SCH ×4 (00:23→17:39)
[2018-06-29] MEDS: IBUPROFEN 800 MG in NORMAL SALINE 250 ML IV SCH ×2 (03:21→09:26)
[2018-06-29] MEDS: GABAPENTIN 300 MG CAPSULE PO SCH ×3 (05:23→21:38)
[2018-06-29] MEDS: LANSOPRAZOLE 30 MG TAB.RAP.DR PO SCH (05:23)
[2018-06-29 06:22] LABS: HEMATOCRIT 33.5 % (36.0-47.0); HEMOGLOBIN 11.4 g/dL (12.0-15.5); MEAN CORPUSCULAR HEMOGLOBIN 30.3 pg (27.0-33.4); MEAN CORPUSCULAR VOLUME 89 fl (80-97); PLATELET COUNT 137 10^3/uL (150-450); RED BLOOD COUNT 3.75 10^6/uL (3.72-5.28); RED CELL DISTRIBUTION WIDTH 16.7 % (11.5-14.0); WHITE BLOOD COUNT 6.2 10^3/uL (4.0-10.5)
[2018-06-29 06:45] LABS: ANION GAP 6 (5-19); BLOOD UREA NITROGEN 13 mg/dL (7-20); CALCIUM 8.3 mg/dL (8.4-10.2); CARBON DIOXIDE 24 mmol/L (22-30); CHLORIDE 105 mmol/L (98-107); GLUCOSE 98 mg/dL (75-110); POTASSIUM 4.3 mmol/L (3.6-5.0)
--- NOTE | 2018-06-29 06:49 | PDOC PROGRESS REPORT ---
Subjective Progress Note for:: 06/29/18 Reason For Visit: PAINFUL LEFT PROXIMAL HEMIARTHROPLASTY 83-year-old female postop day 1 from left hip conversion arthroplasty. Patient with 9 of minor complaints of pain. Ambulated 100 feet with physical therapy yesterday. Physical Exam Vital Signs: Temp Pulse Resp BP Pulse Ox 36.6 C 59 L 14 111/42 L 95 06/28/18 20:10 06/28/18 20:10 06/28/18 20:10 06/28/18 20:10 06/28/18 20:10 Intake & Output 06/27/18 06/28/18 06/29/18 06:59 06:59 06:59 Intake Total 0 7273 Output Total 4000 Balance 0 3273 Weight 63.5 kg General appearance: PRESENT: no acute distress, mild distress Head exam: PRESENT: normocephalic Respiratory exam: PRESENT: unlabored Cardiovascular exam: PRESENT: RRR Pulses: PRESENT: +1 pedal pulses bilateral Vascular exam: PRESENT: normal capillary refill GI/Abdominal exam: PRESENT: soft Rectal exam: PRESENT: deferred Extremities exam: PRESENT: other - Left hip dressing dry and intact. Leg lengths are equal. Distal neurovascular examination is intact. Neurological exam: PRESENT: alert, awake, oriented to person, oriented to place , oriented to time, oriented to situation. ABSENT: motor sensory deficit Psychiatric exam: PRESENT: appropriate affect, normal mood. ABSENT: homicidal ideation, suicidal ideation Skin exam: PRESENT: dry, intact, warm. ABSENT: cyanosis, rash Results Laboratory Results: 06/29/18 05:53 06/28/18 06/28/18 06/29/18 07:00 07:00 05:53 WBC 6.2 RBC 3.75 Hgb 11.4 L Hct 33.5 L MCV 89 MCH 30.3 MCHC 34.0 RDW 16.7 H Plt Count 137 L Potassium 4.1 Blood Type A POSITIVE Antibody Screen NEGATIVE Impressions: Pelvis X-Ray 06/28/18 09:55 IMPRESSION: SATISFACTORY POSTOPERATIVE PELVIS. Status: Imported from PACS Assessment & Plan - Diagnosis (1) History of left hip hemiarthroplasty Is this a current diagnosis for this admission?: Yes Plan: 83-year-old white female postop day 1 left hip revision arthroplasty with an uneventful postoperative course. Patient will continue with physical therapy mobilization today and anticipate discharge home tomorrow with home health services and DME. - Time Time Spent with patient: 15-24 minutes Anticipated discharge: Home with Homehealth Within: within 24 hours
[2018-06-29] MEDS: COLCHICINE 0.6 MG TABLET PO SCH (09:29)
[2018-06-29] MEDS: ASPIRIN 81 MG TABLET, ENT COATED PO SCH (09:29)
[2018-06-29] MEDS: SENNOSIDES/DOCUSATE 8.6-50 MG 1 EACH TABLET PO SCH ×2 (09:29→17:37)
[2018-06-29] MEDS: CLOPIDOGREL BISULFATE 75 MG TABLET PO SCH (09:30)
[2018-06-29] MEDS: PREDNISONE 5 MG TABLET PO SCH (09:30)
[2018-06-29] MEDS: PRENATAL VITAMIN W DHA CAPSULE PO SCH (09:30)
[2018-06-29] MEDS: DILTIAZEM HCL 120 MG CAP.SR.24H PO SCH ×2 (09:30→21:37)
[2018-06-29] MEDS: OXYCODONE HCL SR 10 MG TABLET PO SCH ×2 (09:31→21:37)
[2018-06-29] MEDS: MONTELUKAST SODIUM 10 MG TABLET PO SCH (09:31)
[2018-06-29] MEDS: CYCLOSPORINE 0.05% OPH EMULSIO 0.4 ML DROPERETTE OU SCH (17:37)
[2018-06-29] MEDS: RALOXIFENE HCL 60 MG TABLET PO SCH (21:37)
[2018-06-30] MEDS: LORAZEPAM 0.5 MG TABLET PO SCH ×2 (02:06→10:08)
[2018-06-30] MEDS: LANSOPRAZOLE 30 MG TAB.RAP.DR PO SCH (05:48)
[2018-06-30] MEDS: GABAPENTIN 300 MG CAPSULE PO SCH (05:48)
[2018-06-30 06:13] LABS: HEMATOCRIT 31.5 % (36.0-47.0); HEMOGLOBIN 10.7 g/dL (12.0-15.5); MEAN CORPUSCULAR HEMOGLOBIN 30.3 pg (27.0-33.4); MEAN CORPUSCULAR VOLUME 89 fl (80-97); PLATELET COUNT 124 10^3/uL (150-450); RED BLOOD COUNT 3.53 10^6/uL (3.72-5.28); RED CELL DISTRIBUTION WIDTH 16.8 % (11.5-14.0); WHITE BLOOD COUNT 6.6 10^3/uL (4.0-10.5)
--- NOTE | 2018-06-30 07:08 | PDOC DISCHARGE SUMMARY ---
General - Admit/Disc Date/PCP Admission Date/Primary Care Provider: 06/28/18 06:45 LOBITO HYMAN MD Discharge Date: 06/30/18 - Discharge Diagnosis (1) History of left hip hemiarthroplasty Is this a current diagnosis for this admission?: Yes - Additional Information Resuscitation Status: Full Code Home Medications: Adalimumab [Humira] 40 mg SQ TH@1000 11/22/16 Ascorbate Calcium [Vitamin C] 500 mg PO DAILY 11/22/16 Calcium Carbonate/Vitamin D3 [Calcium 600 + Vit D 400 Tablet] 1 tab PO DAILY Clopidogrel Bisulfate [Plavix 75 mg Tablet] 75 mg PO DAILY 11/22/16 Colchicine [Colchicine 0.6 mg Tablet] 0.6 mg PO DAILY 11/22/16 Cyclosporine 0.05% Oph Emulsio [Restasis 0.05% Oph Emulsion Pf 0.4 ml] 1 drop OU DAILY 11/22/16 Digoxin [Lanoxin 0.125 mg Tablet] 0.125 mg PO MOWEFR@1000 11/22/16 Diltiazem HCl [Diltiazem 12Hr ER] 120 mg PO Q12 11/22/16 Ergocalciferol (Vitamin D2) [Vitamin D2] 50,000 unit PO ASDIR PRN 11/22/16 Fluticasone Propionate [Flonase Nasal [place] 50 Mcg/[place] 16 gm] 1 spray NASL DAILY 11/22/16 Fluticasone/Salmeterol [Advair 100-50 Diskus 14 Dose/Diskus] 1 inh IH Q12 Gabapentin [Neurontin 300 mg Capsule] 300 mg PO Q8 11/22/16 Lansoprazole [Prevacid 15 mg Odt Tablet] 15 mg PO DAILY 11/22/16 Magnesium Oxide [Magnesium] 400 mg PO Q8 11/22/16 Meclizine HCl [Antivert 25 mg Tablet] 25 mg PO Q8HP PRN 11/22/16 Meloxicam [Mobic 7.5 mg Tablet] 7.5 mg PO DAILY 11/22/16 Montelukast Sodium [Singulair 10 mg Tablet] 10 mg PO DAILY 11/22/16 Multivit-Min/Iron/Folic/Lutein [Centrum Silver Women Tablet] 1 each PO DAILY Oxycodone HCl [Oxy-Ir 5 mg Tablet] 2.5 mg PO Q4HP PRN 11/22/16 Prednisone [Deltasone 5 mg Tablet] 7.5 mg PO DAILY 11/22/16 Sennosides [Senna] 8.6 mg PO QAM 11/22/16 Simethicone [Gas-X] 80 mg PO Q6HP PRN 11/22/16 Tramadol HCl [Ultram 50 mg Tablet] 50 mg PO Q6HP PRN #20 tablet 05/31/17 Albuterol Sulfate [Ventolin Hfa] 1 - 2 puff IH Q4 PRN 05/25/18 Lorazepam [Ativan 0.5 mg Tablet] 0.5 mg PO ASDIR PRN 05/25/18 Raloxifene HCl 60 mg PO QHS 05/25/18 Valacyclovir HCl [Valacyclovir] 500 mg PO ASDIR PRN 05/25/18 History of Present Illness History of Present Illness: ARMANDO MANLEY is a 83 year old female Patient is an 83-year-old white female status post left proximal femoral hemiarthroplasty in the distant past now with progressive left hip pain and functional disability. Patient is admitted for elective conversion arthroplasty to a total hip. Hospital Course Hospital Course: Patient is admitted through the operating room where she undergoes uncomplicated conversion to a total hip arthroplasty. She is returned to floor in satisfactory condition. She is excellent pain control. She makes excellent progress with physical therapy ambulating 150 feet. She subsequently for discharge home with home health services and DME. Physical Exam Vital Signs: Temp Pulse Resp BP Pulse Ox 37.2 C 85 16 123/52 L 95 06/29/18 23:58 06/29/18 23:58 06/29/18 23:58 06/29/18 23:58 06/29/18 23:58 Intake & Output 06/29/18 06/30/18 07/01/18 06:59 06:59 06:59 Intake Total 7523 1315 Output Total 4000 Balance 3523 1315 Weight 63.5 kg 68.5 kg General appearance: PRESENT: no acute distress Head exam: PRESENT: normocephalic Respiratory exam: PRESENT: unlabored Cardiovascular exam: PRESENT: RRR Pulses: PRESENT: +1 pedal pulses bilateral Vascular exam: PRESENT: normal capillary refill GI/Abdominal exam: PRESENT: soft Rectal exam: PRESENT: deferred Extremities exam: PRESENT: other - Left hip dressing clean dry and intact. Leg lengths are equal. Distal neurovascular examination is intact. Neurological exam: PRESENT: alert, awake, oriented to person, oriented to place , oriented to time, oriented to situation. ABSENT: motor sensory deficit Psychiatric exam: PRESENT: appropriate affect, normal mood. ABSENT: homicidal ideation, suicidal ideation Skin exam: PRESENT: dry, intact, warm. ABSENT: cyanosis, rash Results Laboratory Results: 06/30/18 05:30 06/29/18 05:53 06/30/18 05:30 WBC 6.6 RBC 3.53 L Hgb 10.7 L Hct 31.5 L MCV 89 MCH 30.3 MCHC 34.0 RDW 16.8 H Plt Count 124 L Impressions: Pelvis X-Ray 06/28/18 09:55 IMPRESSION: SATISFACTORY POSTOPERATIVE PELVIS. Status: Imported from PACS Qualifiers - * PATIENT BEING DISCHARGED WITH ANY OF THE FOLLOWING DIAGNOSIS: No VTE patient discharged on overlapping Therapy?: Yes Plan Discharge Plan: Patient to be discharged home with home health nursing, home health physical therapy, and DME. Follow-up with Dr. Vega [facility] for surgery in 2 weeks for staple removal. Time Spent: Less than 30 Minutes
[2018-06-30] MEDS ORDERED: DIGOXIN 0.125 MG TABLET PO SCH (10:00)
[2018-06-30] MEDS: DILTIAZEM HCL 120 MG CAP.SR.24H PO SCH (10:12)
[2018-06-30] MEDS: COLCHICINE 0.6 MG TABLET PO SCH (10:13)
[2018-06-30] MEDS: PREDNISONE 5 MG TABLET PO SCH (10:13)
[2018-06-30] MEDS: ASPIRIN 81 MG TABLET, ENT COATED PO SCH (10:14)
[2018-06-30] MEDS: OXYCODONE HCL SR 10 MG TABLET PO SCH (10:14)
[2018-06-30] MEDS: SENNOSIDES/DOCUSATE 8.6-50 MG 1 EACH TABLET PO SCH (10:15)
[2018-06-30] MEDS: MONTELUKAST SODIUM 10 MG TABLET PO SCH (10:15)
[2018-06-30] MEDS: PRENATAL VITAMIN W DHA CAPSULE PO SCH (10:15)
[2018-06-30] MEDS: CLOPIDOGREL BISULFATE 75 MG TABLET PO SCH (10:15)
[2018-06-30 11:34] VITALS: BP 129/50
== END 2018-06-30 12:15 | disposition home or self-care (01) | DRG 470 ==
LOC: INOR 06-28 06:45 → 4S 06-28 15:33
PROVIDERS: ADMIT Orthopaedic Surgery; ATTEND Orthopaedic Surgery
PROC: 0SBB0ZZ Excision of Left Hip Joint, Open Approach (ICD-10-PCS; 2018-06-28)
PROC: 0SRB02Z Replacement of Left Hip Joint with Metal on Polyethylene Synthetic Substitute, Open Approach (ICD-10-PCS; principal; 2018-06-28 08:45)
DX: M16.12 Unilateral primary osteoarthritis, left hip (principal); I10 Essential (primary) hypertension; M10.9 Gout, unspecified; Z79.51 Long term (current) use of inhaled steroids; Z79.52 Long term (current) use of systemic steroids; Z79.899 Other long term (current) drug therapy
CPT/HCPCS: 01214; 36415; 72170; 80048; 84132; 85027; 85610; 85730; 86850; 86900; 86901; 87070; 87075; 87205; 88305; 88313; 88331; 94799; C9290; G8978-GP; G8979-GP; G8987-GO; G8988-GO; J0690; J1741; J2250; J2270; J2370; J2405; J2704; J3010; J3370; J3490; J7050; J7060; J7512

== ENCOUNTER → 2019-04-11 | Outpatient (CLI) | payer MEDICARE, BC ==
[2019-04-12 09:36] LABS: ANION GAP 9 (5-19); BLOOD UREA NITROGEN 21 mg/dL (7-20); CALCIUM 9.4 mg/dL (8.4-10.2); CARBON DIOXIDE 29 mmol/L (22-30); CHLORIDE 102 mmol/L (98-107); CHOLESTEROL 187.22 mg/dL (0-200); GLUCOSE 81 mg/dL (75-110); POTASSIUM 4.4 mmol/L (3.6-5.0); SODIUM 140.4 mmol/L (137-145); TRIGLYCERIDES 116 mg/dL (<150)
[2019-04-12 09:47] LABS: DIRECT LDL 96 mg/dL (<100)
== END ==
LOC: OD 11:41
PROVIDERS: ATTEND Family Medicine
DX: E78.2 Mixed hyperlipidemia (principal); I10 Essential (primary) hypertension; D64.9 Anemia, unspecified; Z79.899 Other long term (current) drug therapy
CPT/HCPCS: 36415; 80048; 80061; 83036; 84443

== ENCOUNTER 2019-09-16 16:21 | Emergency (ER) | payer MEDICARE, BC ==
[2019-09-16] MEDS ORDERED: DIPH/PERTUSS(ACELL)/TETANUS VAC/PF 0.5 ML SYR (>=10YO) IM ONE (16:40)
--- NOTE | 2019-09-16 16:43 | ER Document Report ---
HPI - HPI Time Seen by Provider: 09/16/19 16:36 Notes: Patient is an 84-year-old female who is currently on Plavix who presents complaining of puncture wound to the webbing between the first and second digits left hand prior to arrival by a knife. Patient was trying to use the knife to help open up a bottle, but it slipped and punctured her. Unknown last tetanus. She is able to move her thumb without difficulty. They did have trouble stopping the bleeding until he got here. No other concerns or complaints. Denies any headache, fever, URI, sore throat, chest pain, palpitations, syncope, cough, shortness of breath, wheeze, dyspnea, abdominal pain, nausea/vomiting/diarrhea, urinary retention, dysuria, hematuria, numbness/tingling, muscle paralysis/weakness, or rash. - ROS Systems Reviewed and Negative: Yes All other systems reviewed and negative - REPRODUCTIVE Reproductive: DENIES: : Past Medical History - Social History Smoking Status: Unknown if Ever Smoked Family History: Reviewed & Not Pertinent, Hypertension - Past Medical History Cardiac Medical History: Reports: Hx Atrial Fibrillation, Hx Hypercholesterolemia, Hx Hypertension Denies: Hx Congestive Heart Failure, Hx Coronary Artery Disease, Hx Heart Attack, Hx Peripheral Vascular Disease, Hx Pulmonary Embolism, Hx Heart Murmur Pulmonary Medical History: Reports: Hx Asthma, Hx Bronchitis, Hx COPD, Hx Pneumonia - more than 5 yrs ago Denies: Hx Respiratory Failure, Hx Sleep Apnea, Hx Tuberculosis Neurological Medical History: Denies: Hx Cerebrovascular Accident, Hx Seizures Endocrine Medical History: Denies: Hx Hyperthyroidism, Hx Hypothyroidism Renal/ Medical History: Denies: Hx Kidney Stones, Hx Peritoneal Dialysis Malignancy Medical History: Denies: Hx Leukemia, Hx Lung Cancer GI Medical History: Reports: Hx Gastroesophageal Reflux Disease. Denies: Hx Crohn's Disease, Hx Hiatal Hernia, Hx Irritable Bowel, Hx Liver Failure, Hx Pancreatitis, Hx Ulcer Musculoskeletal Medical History: Reports Hx Arthritis, Reports Hx Fibromyalgia, Denies Hx Muscular Dystrophy Psychiatric Medical History: Reports: Hx Depression Denies: Hx Bipolar Disorder, Hx Post Traumatic Stress Disorder Traumatic Medical History: Reports: Hx Fractures - L hip 2013 Infectious Medical History: Denies: Hx HIV Past Surgical History: Reports: Hx Appendectomy, Hx Hysterectomy, Hx Orthopedic Surgery - cervical fusion, Hx Tonsillectomy, Hx Tubal Ligation. Denies: Hx Bowel Surgery, Hx Section, Hx Cholecystectomy, Hx Colostomy, Hx Coronary Artery Bypass Graft, Hx Gastric Bypass Surgery, Hx Herniorrhaphy, Hx Mastectomy, Hx Pacemaker - Immunizations Immunizations up to date: Yes Hx Diphtheria, Pertussis, Tetanus Vaccination: Yes Hx Pneumococcal Vaccination: 08/13/14 Vertical Provider Document - CONSTITUTIONAL Agree With Documented VS: Yes Notes: PHYSICAL EXAMINATION: GENERAL: Well-appearing, well-nourished and in no acute distress. HEAD: Atraumatic, normocephalic. NECK: Normal range of motion, supple without lymphadenopathy. No midline tenderness. LUNGS: Breath sounds clear to auscultation bilaterally and equal. No wheezes rales or rhonchi. HEART: Regular rate and rhythm without murmurs, rubs, gallops. Musculoskeletal: Lt hand/wrist: No erythema, warmth, ecchymosis, deformity, or swelling noted. N/V intact distal. FROM to passive/active. Strength 5+/5 to aircraft quality control inspector. No scaphoid tenderness. No other bony tenderness. Gamekeeper negative. + linear superficial 1cm puncture lac to the webbing of the 1st two digits. Bleeding controlled at this time. Extremities: No cyanosis, clubbing, or edema b/l. Peripheral pulses 2+. Capillary refill less than 3 seconds. NEUROLOGICAL: Normal speech, normal gait. Normal sensory, motor exams otherwise unremarkable PSYCH: Normal mood, normal affect. SKIN: see above. No rash - INFECTION CONTROL TRAVEL OUTSIDE OF THE [place] IN LAST 30 DAYS: No Course - Re-evaluation Re-evalutation: 09/16/19 Patient is an afebrile, well-hydrated, 84-year-old female who presents to the ED with a puncture/laceration to the left hand. Vitals are acceptable. PE is otherwise unremarkable for any neurovascular compromise, obvious tendon/ligament rupture, obvious fracture/dislocation, septic joint. Patient is nontoxic- appearing and is tolerating p.o. without difficulties. XR unremarkable. Wound was thoroughly irrigated and cleansed. Wound edges were approximated appropriately utilizing 2 simple interrupted sutures. Wound dressing was placed and wound instructions reviewed. Patient tolerated procedure well without any complications. Tetanus was updated today. No further labs or imaging warranted. Sutures will need removed in 10 days. Rx for keflex. Recheck with your PCM in 2-3 days. Consider consult orthopedics if needed. Return to the ED with any worsening/concerning symptoms otherwise as reviewed in discharge. Patient is in agreement. Procedures - Laceration/Wound Repair Left Thumb Wound length (cm): 1 Wound's Depth, Shape: Superficial, Linear Laceration pre-procedure: Sterile PPE donned, Sterile drapes applied, Other - chlorhexadine/saline Wound explored: Clean, No foreign body removed Irrigated w/ Saline (mLs): 180 Wound Debrided: none Wound Repaired With: Sutures Suture Size/Type: 4:0, Ethilon Layer Closure?: No Post-procedure wound care: Sterile dressing applied Post-procedure NV exam normal: Yes Complications: No Discharge - Discharge Clinical Impression: Laceration of left hand Qualifiers: Encounter type: initial encounter Foreign body presence: without foreign body Qualified Code(s): S61.412A - Laceration without foreign body of left hand, initial encounter Condition: Stable Disposition: HOME, SELF-CARE Instructions: Soap Cleansing ([facility]) Additional Instructions: Do not shower or bathe for 24 hours. After 24 hours you may shower but no submersion of the wound under water. Keep the original dressing on the wound for 24 hours unless the drainage soaks through. Change the dressing daily thereafter and keep the knots of the suture material clean from any dried discharge. You may leave the wound open to the air once there is no more discharge. See your PCM in 2-3 days for a recheck. Monitor for any signs of worsening pain or redness, purulent drainage, streaks, and/or fever. Return to the ED if noticing any of the above symptoms or as needed. Take medications as directed. Your sutures will need to be removed in 10 days. Prescriptions: Cephalexin Monohydrate [Keflex 500 mg Capsule] 500 mg PO BID #14 capsule Referrals: LOBITO HYMAN MD [Primary Care Provider] - Follow up as needed [facility] [Provider Group] - Follow up as needed
--- NOTE | 2019-09-16 17:37 | RADIOLOGY REPORT (SQ) ---
EXAM DESCRIPTION: HAND LEFT 3 VIEWS COMPLETED DATE/TIME: 09/16/2019 5:10 pm REASON FOR STUDY: knife puncture wound webbing b/w 1st-2nd finger COMPARISON: None. EXAM PARAMETERS: NUMBER OF VIEWS: Three views. TECHNIQUE: AP, lateral and oblique radiographic images acquired of the left hand. LIMITATIONS: None. FINDINGS: MINERALIZATION: Osteopenia. BONES: No acute fracture or dislocation. No worrisome bone lesions. JOINTS: No effusion. SOFT TISSUES: Moderate soft tissue swelling. No radiopaque foreign body. OTHER: No other significant finding. IMPRESSION: NO FRACTURE. TECHNICAL DOCUMENTATION: JOB ID: [id number] [employer]- All Rights Reserved Reading location - IP/workstation name: Experiment
[2019-09-16 18:35] VITALS: BP 132/62
== END 2019-09-16 18:36 | disposition home or self-care (01) ==
LOC: ER 16:21
DX: S61.412A Laceration without foreign body of left hand, initial encounter (principal); W26.0XXA Contact with knife, initial encounter; I48.91 Unspecified atrial fibrillation; E78.00 Pure hypercholesterolemia, unspecified; I10 Essential (primary) hypertension; K21.9 Gastro-esophageal reflux disease without esophagitis; Z23 Encounter for immunization; Z79.02 Long term (current) use of antithrombotics/antiplatelets; Z90.710 Acquired absence of both cervix and uterus; Z98.1 Arthrodesis status
CPT/HCPCS: 90471; 90715; 99283

== ENCOUNTER 2020-03-20 00:30 | Inpatient (IN) | payer MEDICARE, BC ==
[2020-03-20] MEDS ORDERED: NORMAL SALINE 500 ML IV ONE (00:34)
[2020-03-20] MEDS ORDERED: ACETAMINOPHEN 650 MG SUPP.RECT PR ONE (00:34)
--- NOTE | 2020-03-20 00:36 | ER Document Report ---
ED General - General Chief Complaint: Pain With Urination Stated Complaint: FEVER/PAINFUL URINATION Time Seen by Provider: 03/20/20 00:32 Primary Care Provider: LOBITO HYMAN MD [Primary Care Provider] - Follow up as needed Notes: Ms. Downs is an 85-year-old female who was called by her family because of about 2 days of lethargy decreased sleep decreased oral intake painful urination back pain and fever. Also had a fall and has some mild neck pain. This a fall occurred earlier today. No headache or LOC. Mild confusion. Axillary several 100.8 for EMS but feels much hotter. No diarrhea. The patient has NO history of travel to high-risk locations for COVID-19 or contact with persons under investigation for or confirmed positive for COVID-19. TRAVEL OUTSIDE OF THE [place] IN LAST 30 DAYS: No - Related Data Allergies/Adverse Reactions: ciprofloxacin [From Cipro] Allergy (Verified 05/25/18 12:20) ibuprofen Allergy (Verified 05/25/18 12:20) methotrexate [Methotrexate] Allergy (Verified 05/25/18 12:20) Hives NSAIDS (Non-Steroidal Anti-Inflamma [Nsaids] Allergy (Verified 05/25/18 12:20) aspirin [Aspirin] Adverse Reaction (Mild, Verified 05/25/18 12:20) Nausea codeine [Codeine] Adverse Reaction (Verified 05/25/18 12:20) hydrocodone [Hydrocodone] Adverse Reaction (Verified 05/25/18 12:20) oxycodone HCl [From Percocet] Adverse Reaction (Verified 06/28/18 07:44) Dizziness Sulfa (Sulfonamide Antibiotics) Adverse Reaction (Verified 05/25/18 12:20) Past Medical History - General Information source: Patient, Emergency Med Personnel Cannot obtain history due to: Mentally challenged, Altered mental status - Social History Smoking Status: Unknown if Ever Smoked Family History: Reviewed & Not Pertinent, Hypertension - Past Medical History Cardiac Medical History: Reports: Hx Atrial Fibrillation, Hx Hypercholesterolemia, Hx Hypertension Denies: Hx Congestive Heart Failure, Hx Coronary Artery Disease, Hx Heart Attack, Hx Peripheral Vascular Disease, Hx Pulmonary Embolism, Hx Heart Murmur Pulmonary Medical History: Reports: Hx Asthma, Hx Bronchitis, Hx COPD, Hx Pneumonia - more than 5 yrs ago Denies: Hx Respiratory Failure, Hx Sleep Apnea, Hx Tuberculosis Neurological Medical History: Denies: Hx Cerebrovascular Accident, Hx Seizures Endocrine Medical History: Denies: Hx Hyperthyroidism, Hx Hypothyroidism Renal/ Medical History: Denies: Hx Kidney Stones, Hx Peritoneal Dialysis Malignancy Medical History: Denies: Hx Leukemia, Hx Lung Cancer GI Medical History: Reports: Hx Gastroesophageal Reflux Disease. Denies: Hx Crohn's Disease, Hx Hiatal Hernia, Hx Irritable Bowel, Hx Liver Failure, Hx Pancreatitis, Hx Ulcer Musculoskeletal Medical History: Reports Hx Arthritis, Reports Hx Fibromyalgia, Denies Hx Muscular Dystrophy Psychiatric Medical History: Reports: Hx Depression Denies: Hx Bipolar Disorder, Hx Post Traumatic Stress Disorder Traumatic Medical History: Reports: Hx Fractures - L hip 2013 Infectious Medical History: Denies: Hx HIV Past Surgical History: Reports: Hx Appendectomy, Hx Hysterectomy, Hx Orthopedic Surgery - cervical fusion, Hx Tonsillectomy, Hx Tubal Ligation. Denies: Hx Bowel Surgery, Hx Section, Hx Cholecystectomy, Hx Colostomy, Hx Coronary Artery Bypass Graft, Hx Gastric Bypass Surgery, Hx Herniorrhaphy, Hx Mastectomy, Hx Pacemaker - Immunizations Immunizations up to date: Yes Hx Diphtheria, Pertussis, Tetanus Vaccination: Yes Hx Pneumococcal Vaccination: 08/13/14 Review of Systems - Review of Systems Notes: REVIEW OF SYSTEMS GEN: Fever and decreased oral intake ENT: Denies sore throat, nasal discharge, ear pain EYES: Denies blurry vision, eye pain, discharge CV: Denies chest pain, palpitations, edema RESP: Denies cough, shortness of breath, wheezing GI: Painful urination, denies abdominal pain, nausea, vomiting, diarrhea MSK: Low back pain SKIN: Denies rash, skin lesions LYMPH: Denies swollen glands/lymph nodes NEURO: Denies headache, focal weakness or numbness, dizziness PSYCH: Denies depression, suicidal or homicidal ideation PHYSICAL EXAMINATION General: Really warm to the touch Head: Atraumatic, normocephalic ENT: Mouth normal, oropharynx moist, no exudates or tonsillar enlargement Eyes: Conjunctiva normal, pupils equal, lids normal Neck: No JVD, supple, no guarding CVS: Normal rate, regular rhythm, no murmurs Resp: No resp distress, equal and normal breath sounds bilaterally GI: Nondistended, soft, no tenderness to palpation, no rebound or guarding Ext: No deformities, no edema, normal range of motion in upper and lower ext Back: No CVA or midline TTP Skin: No rash, warm hot Lymphatic: No lymphadeopathy noted Neuro: Extremities are moving symmetrically.. Physical Exam - Vital signs Vitals: Resp Pulse Ox 24 H 91 L 03/20/20 00:36 03/20/20 00:36 Course - Re-evaluation Re-evalutation: 03/20/20 00:36 Altered mental status fever and back pain with painful urination likely reflects urosepsis We will start with 1 L fluid given age, cover with Rocephin to do sepsis work- up, will also get chest x-ray as pneumonia can coexist with UTI Shows no abdominal tenderness and at this time I think biliary pathology is less likely. 03/20/20 02:54 Given fluids pressures,. Hyponatremic with elevated white count. Urine shows some early signs of infection but nothing florid. For this reason abdominal CT was donenegative Discussed with radiology no occult pneumonia at the bases Cover test sent. Given broad-spectrum antibiotics including pneumonia coverage. Troponin is elevated but EKG shows no ischemic change and is likely secondary to stress and sepsis Discussed with Dr. Vergara for admission. - Vital Signs Vital signs: Temp Pulse Resp BP Pulse Ox 102.5 F H 24 H 113/41 L 94 03/20/20 01:07 03/20/20 00:37 03/20/20 00:37 03/20/20 01:00 - Laboratory Result Diagrams: 03/20/20 00:50 03/20/20 00:50 Laboratory results interpreted by me: 03/20/20 03/20/20 03/20/20 00:50 00:50 00:50 WBC 18.7 H Seg Neuts % (Manual) 87 H Lymphocytes % (Manual) 9 L Abs Neuts (Manual) 16.3 H VBG pH 7.44 H VBG pCO2 34.1 L Sodium 130.0 L Potassium 3.4 L Chloride 97 L Urine Ketones Urine Nitrite Urine Ascorbic Acid 03/20/20 01:10 WBC Seg Neuts % (Manual) Lymphocytes % (Manual) Abs Neuts (Manual) VBG pH VBG pCO2 Sodium Potassium Chloride Urine Ketones TRACE H Urine Nitrite POSITIVE H Urine Ascorbic Acid 40 H - Diagnostic Test Radiology reviewed: Image reviewed, Reports reviewed - EKG Interpretation by Me EKG shows normal: Sinus rhythm Rate: Tachycardia Rhythm: A.Fib - No acute ST or T wave changes Critical Care Note - Critical Care Note Total time excluding time spent on procedures (mins): 31 Comments: The above patient is critically ill. Not including procedures, but including direct re-evaluations, speaking with patient and/or consultants, interpreting results, and documenting, I spent the total amount of minute listed listed above on critical care time Discharge - Discharge Clinical Impression: Sepsis Qualifiers: Sepsis type: sepsis due to unspecified organism Sepsis acute organ dysfunction status: unspecified Qualified Code(s): A41.9 - Sepsis, unspecified organism Condition: Critical Disposition: ADMITTED INPATIENT Admitting Provider: Jai (Hospitalist) Unit Admitted: IMCU Referrals: LOBITO HYMAN MD [Primary Care Provider] - Follow up as needed
--- NOTE | 2020-03-20 01:04 | RADIOLOGY REPORT (SQ) ---
CHEST 1 VIEW on 03/20/2020 at 12:43 AM CLINICAL INDICATION: Sepsis COMPARISON: 05/24/2018 FINDINGS: There is moderate elevation of the right hemidiaphragm. Vascular calcification is noted in the aorta. Mild chronic interstitial changes are noted. There are high riding bilateral humeral heads suggesting chronic rotator cuff tears bilaterally. Heart is borderline in size. Hilar and mediastinal contours are within normal limits. Lungs are otherwise clear. IMPRESSION: No acute disease.
[2020-03-20] MEDS: CEFTRIAXONE 1 GM/D5W RTU 1 GM/50 ML RTUPB IV SCH ×2 (01:29→09:25)
[2020-03-20 01:36] LABS: VENOUS BLOOD BASE EXCESS -0.5 mmol/L; VENOUS BLOOD HCO3 22.7 mmol/L (20-32); VENOUS BLOOD PCO2 34.1 mmHg (35-63); VENOUS BLOOD PH 7.44 (7.30-7.42)
[2020-03-20 01:40] LABS: INTERNATIONAL RATION (INR) 1.15; PROTHROMBIN TIME 14.8 SEC (11.4-15.4)
[2020-03-20 01:45] LABS: ALBUMIN 3.7 g/dL (3.5-5.0); ALKALINE PHOSPHATASE 72 U/L (38-126); ANION GAP 9 (5-19); ASPARTATE AMINO TRANSFERASE 24 U/L (14-36); BILIRUBIN,DIRECT 0.2 mg/dL (0.0-0.4); BILIRUBIN,TOTAL 0.6 mg/dL (0.2-1.3); BLOOD UREA NITROGEN 19 mg/dL (7-20); CALCIUM 9.4 mg/dL (8.4-10.2); CARBON DIOXIDE 24 mmol/L (22-30); CHLORIDE 97 mmol/L (98-107); GLUCOSE 100 mg/dL (75-110); POTASSIUM 3.4 mmol/L (3.6-5.0); TOTAL PROTEIN 6.4 g/dL (6.3-8.2)
[2020-03-20 01:51] LABS: APPEARANCE,URINE SLIGHTLY-CLOUDY; BILIRUBIN,URINE NEGATIVE (NEGATIVE); COLOR,URINE YELLOW; GLUCOSE, URINE NEGATIVE (NEGATIVE); KETONES,URINE TRACE mg/dL (NEGATIVE); LEUKOCYTE ESTERASE,URINE NEGATIVE (NEGATIVE); NITRITE,URINE POSITIVE (NEGATIVE); PROTEIN,URINE NEGATIVE (NEGATIVE); UROBILINOGEN,URINE NEGATIVE mg/dL (<2.0)
[2020-03-20] MEDS ORDERED: RINGERS SOLUTION,LACTATED 1,000 ML IV ONE (01:52)
[2020-03-20 01:55] LABS: HEMATOCRIT 38.3 % (36.0-47.0); MEAN CORPUSCULAR HEMOGLOBIN 32.9 pg (27.0-33.4); MEAN CORPUSCULAR VOLUME 97 fl (80-97); PLATELET COUNT 161 10^3/uL (150-450); RED BLOOD COUNT 3.96 10^6/uL (3.72-5.28); WHITE BLOOD COUNT 18.7 10^3/uL (4.0-10.5)
[2020-03-20 02:04] LABS: ABSOLUTE LYMPHOCYTES# (MANUAL) 1.7 10^3/uL (0.5-4.7); ABSOLUTE MONOCYTES # (MANUAL) 0.7 10^3/uL (0.1-1.4); ANISOCYTOSIS SLIGHT; BASOPHILS % (MANUAL) 0 % (0-2); EOSINOPHILS % (MANUAL) 0 % (0-6); LYMPHOCYTES % (MANUAL) 9 % (13-45); MONOCYTES % (MANUAL) 4 % (3-13); OVALOCYTES SLIGHT; PLATELET COMMENT ADEQUATE; POIKILOCYTOSIS SLIGHT; POLYCHROMASIA SLIGHT; SCHISTOCYTES SLIGHT; SEGMENTED NEUTROPHILS % (MAN) 87 % (42-78); TEAR DROP CELLS SLIGHT; TOTAL CELLS COUNTED 100; TOXIC GRANULATION SLIGHT
[2020-03-20] MEDS ORDERED: AZITHROMYCIN INJ 500 MG VIAL IV ONE (02:33)
--- NOTE | 2020-03-20 02:50 | RADIOLOGY REPORT (SQ) ---
CLINICAL INDICATION: fever sepsis no source. CREAT 0.85. . TECHNIQUE: Contrast enhanced spiral axial CT imaging was obtained of the abdomen and pelvis with multiplanar reconstructions. This exam was performed according to our departmental dose-optimization program, which includes automated exposure control, adjustment of the mA and/or kV according to patient size and/or use of iterative reconstruction techniques. COMPARISON: January 15, 2014. CORRELATION: None. FINDINGS: Abdomen: The lung bases demonstrate chronic changes. Improved aeration when compared to prior.. The heart is enlarged but stable. Interval resolution of the pleural and pericardial fluid. The liver is of normal size contour and attenuation. The gallbladder is nondistended without inflammatory change. The pancreas is unremarkable. The spleen is unremarkable. The adrenals are unremarkable. The kidneys appear grossly normal without evidence of urolithiasis or hydronephrosis. There is no evidence of free air. No free fluid. No bulky adenopathy. Abdominal aorta is nonaneurysmal. Vascular calcification Pelvis: The bowel is nonobstructed. The bowel is unopacified with oral contrast. Pelvic contents are obscured by left hip prosthesis.. The appendix is not seen. Moderate hard stool throughout colon. No focal inflammatory changes are seen.. Visualized bones definite scoliosis and osteoarthritis. IMPRESSION: Artifact the patient's arms. Imaging is degraded by patient motion, with resultant artifact. The best possible images were obtained. Improved aeration when compared to prior. Resolution of the pleural and pericardial fluid. No acute intra-abdominal process is seen. Moderate hard stool throughout the colon. No evidence of obstruction. The cause of the patient's fever and sepsis is not identified on this examination..
[2020-03-20] MEDS ORDERED: HYDRALAZINE HCL INJ/PF 20 MG/1 ML SDV IV PRN (04:28)
[2020-03-20] MEDS ORDERED: LACTULOSE SYRUP 20 GM/30 ML UDCUP PO ONE (04:28)
[2020-03-20] MEDS ORDERED: NORMAL SALINE 1000 ML 1,000 ML IV SCH (04:30)
[2020-03-20] MEDS ORDERED: IPRATROPIUM/ALBUTEROL 0.5-2.5 MG/3 ML AMPUL NEB PRN (04:30)
--- NOTE | 2020-03-20 04:43 | PDOC H&P ---
History of Present Illness Admission Date/PCP: 03/20/20 03:18 LOBITO HYMAN MD Patient complains of: Fever and painful urination History of Present Illness: ARMANDO MANLEY is a 85 year old female with a past medical history of atrial fibrillation, hypertension, dyslipidemia, COPD, bronchitis, pneumonia, GERD, fibromyalgia, osteoarthritis and depression. She is a extremely poor historian and subsequently history is obtained by the record she presents with 2 days of lethargy, back pain with painful urination and a recent fall. In the emergency department she is found to have l hypotension, eukocytosis and a fever. She started on empiric antibiotics for sepsis from pneumonia and referred to the hospitalist for admission. Work-up is however uncertain for cause of sepsis and fever. She is asleep but arousable but exam is completely nonfocal. Past Medical History Cardiac Medical History: Reports: Atrial Fibrillation, Hyperlipidema, Hypertension Denies: Congestive Heart Failure, Coronary Artery Disease, Myocardial Infarction, Peripheral Vascular Disease, Pulmonary Embolism, Heart Murmur Pulmonary Medical History: Reports: Asthma, Bronchitis, Chronic Obstructive Pulmonary Disease (COPD), Pneumonia - more than 5 yrs ago Denies: Respiratory Failure, Sleep Apnea, Tuberculosis Neurological Medical History: Denies: Seizures Endocrine Medical History: Denies: Hyperthyroidism, Hypothyroidism Malignancy Medical History: Denies: Leukemia, Lung Cancer GI Medical History: Reports: Gastroesophageal Reflux Disease Denies: Crohn's Disease, Hiatal Hernia Musculoskeltal Medical History: Reports: Arthritis, Fibromyalgia Psychiatric Medical History: Reports: Depression Denies: Bipolar Disorder, Post Traumatic Stress Disorder Hematology: Reports: Anemia Denies: Hemophilia, Sickle Cell Disease Infectious Medical History: Denies: HIV Past Surgical History Past Surgical History: Reports: Appendectomy, Hysterectomy, Orthopedic Surgery - cervical fusion, Tonsillectomy, Tubal Ligation Denies: Amputation, Section, Cholecystectomy, Colostomy, Coronary Artery Bypass Graft, Gastric Bypass Surgery, Herniorrhaphy, Mastectomy, Pacem valentin Social History Information Source: Emergency Med Personnel, [facility] Records Smoking Status: Unknown if Ever Smoked Frequency of Alcohol Use: None Hx Recreational Drug Use: No Drugs: None Hx Prescription Drug Abuse: No - Advance Directive Resuscitation Status: Full Code Family History Family History: Hypertension Parental Family History Reviewed: No - Unobtainable Children Family History Reviewed: No - Unobtainable Sibling(s) Family History Reviewed.: No - Unobtainable Medication/Allergy Home Medications: Adalimumab [Humira] 40 mg SQ TH@1000 11/22/16 Ascorbate Calcium [Vitamin C] 500 mg PO DAILY 11/22/16 Calcium Carbonate/Vitamin D3 [Calcium 600 + Vit D 400 Tablet] 1 tab PO DAILY 11/22/16 Clopidogrel Bisulfate [Plavix 75 mg Tablet] 75 mg PO DAILY 11/22/16 Colchicine [Colchicine 0.6 mg Tablet] 0.6 mg PO DAILY 11/22/16 Cyclosporine 0.05% Oph Emulsio [Restasis 0.05% Oph Emulsion Pf 0.4 ml] 1 drop OU DAILY 11/22/16 Digoxin [Lanoxin 0.125 mg Tablet] 0.125 mg PO MOWEFR@1000 11/22/16 Diltiazem HCl [Diltiazem 12Hr ER] 120 mg PO Q12 11/22/16 Ergocalciferol (Vitamin D2) [Vitamin D2] 50,000 unit PO ASDIR PRN 11/22/16 Fluticasone Propionate [Flonase Nasal Rewey 50 Mcg/Rewey 16 gm] 1 spray NASL DAILY 11/22/16 Fluticasone/Salmeterol [Advair 100-50 Diskus 14 Dose/Diskus] 1 inh IH Q12 11/22/16 Gabapentin [Neurontin 300 mg Capsule] 300 mg PO Q8 11/22/16 Lansoprazole [Prevacid 15 mg Odt Tablet] 15 mg PO DAILY 11/22/16 Magnesium Oxide [Magnesium] 400 mg PO Q8 11/22/16 Meclizine HCl [Antivert 25 mg Tablet] 25 mg PO Q8HP PRN 11/22/16 Meloxicam [Mobic 7.5 mg Tablet] 7.5 mg PO DAILY 11/22/16 Montelukast Sodium [Singulair 10 mg Tablet] 10 mg PO DAILY 11/22/16 Multivit-Min/Iron/Folic/Lutein [Centrum Silver Women Tablet] 1 each PO DAILY 11/22/16 Oxycodone HCl [Oxy-Ir 5 mg Tablet] 2.5 mg PO Q4HP PRN 11/22/16 Prednisone [Deltasone 5 mg Tablet] 7.5 mg PO DAILY 11/22/16 Sennosides [Senna] 8.6 mg PO QAM 11/22/16 Simethicone [Gas-X] 80 mg PO Q6HP PRN 11/22/16 Tramadol HCl [Ultram 50 mg Tablet] 50 mg PO Q6HP PRN #20 tablet 05/31/17 Albuterol Sulfate [Ventolin Hfa] 1 - 2 puff IH Q4 PRN 05/25/18 Lorazepam [Ativan 0.5 mg Tablet] 0.5 mg PO ASDIR PRN 05/25/18 Raloxifene HCl 60 mg PO QHS 05/25/18 Valacyclovir HCl [Valacyclovir] 500 mg PO ASDIR PRN 05/25/18 Cephalexin Monohydrate [Keflex 500 mg Capsule] 500 mg PO BID #14 capsule 09/16/19 Allergies/Adverse Reactions: ciprofloxacin [From Cipro] Allergy (Verified 05/25/18 12:20) ibuprofen Allergy (Verified 05/25/18 12:20) methotrexate [Methotrexate] Allergy (Verified 05/25/18 12:20) Hives NSAIDS (Non-Steroidal Anti-Inflamma [Nsaids] Allergy (Verified 05/25/18 12:20) aspirin [Aspirin] Adverse Reaction (Mild, Verified 05/25/18 12:20) Nausea codeine [Codeine] Adverse Reaction (Verified 05/25/18 12:20) hydrocodone [Hydrocodone] Adverse Reaction (Verified 05/25/18 12:20) oxycodone HCl [From Percocet] Adverse Reaction (Verified 06/28/18 07:44) Dizziness Sulfa (Sulfonamide Antibiotics) Adverse Reaction (Verified 05/25/18 12:20) Review of Systems ROS unobtainable: Due to mental status - Unobtainable Physical Exam Vital Signs: Temp Pulse Resp BP Pulse Ox 102.5 F H 20 96/45 L 95 03/20/20 01:07 03/20/20 03:01 03/20/20 02:30 03/20/20 03:01 Intake & Output 03/18/20 03/19/20 03/20/20 11:59 11:59 11:59 Intake Total 550 Balance 550 Weight 61 kg General appearance: PRESENT: cooperative, mild distress, well-developed, well-nourished Head exam: PRESENT: atraumatic, normocephalic Eye exam: PRESENT: conjunctiva pink, EOMI, PERRLA. ABSENT: scleral icterus Ear exam: PRESENT: normal external ear exam Mouth exam: PRESENT: dry mucosa Neck exam: ABSENT: carotid bruit, JVD, lymphadenopathy, thyromegaly Respiratory exam: PRESENT: clear to auscultation keysha, crackles, prolonged expiratory phas. ABSENT: rales, rhonchi, wheezes Cardiovascular exam: PRESENT: RRR. ABSENT: diastolic murmur, rubs, systolic murmur Pulses: PRESENT: normal dorsalis pedis pul Vascular exam: PRESENT: normal capillary refill GI/Abdominal exam: PRESENT: hypoactive bowel sounds, normal bowel sounds, soft. ABSENT: distended, guarding, mass, organolmegaly, rebound, tenderness Rectal exam: PRESENT: deferred Extremities exam: PRESENT: full ROM. ABSENT: calf tenderness, clubbing, pedal edema Neurological exam: PRESENT: altered, oriented to person, CN II-XII grossly intact. ABSENT: motor sensory deficit Psychiatric exam: PRESENT: appropriate affect, normal mood. ABSENT: homicidal ideation, suicidal ideation Skin exam: PRESENT: dry, intact, warm. ABSENT: cyanosis, rash Results Laboratory Results: 03/20/20 00:50 03/20/20 00:50 03/20/20 03/20/20 03/20/20 00:50 00:50 00:50 WBC 18.7 H RBC 3.96 Hgb 13.0 Hct 38.3 MCV 97 MCH 32.9 MCHC 34.0 RDW 14.0 Plt Count 161 Seg Neutrophils % Not Reportable VBG pH 7.44 H VBG pCO2 34.1 L VBG HCO3 22.7 VBG Base Excess -0.5 Sodium 130.0 L Potassium 3.4 L Chloride 97 L Carbon Dioxide 24 Anion Gap 9 BUN 19 Creatinine 0.85 Est GFR ( Amer) > 60 Glucose 100 Lactic Acid Calcium 9.4 Total Bilirubin 0.6 AST 24 Alkaline Phosphatase 72 Total Protein 6.4 Albumin 3.7 Urine Color Urine Appearance Urine pH Ur Specific [place] Urine Protein Urine Glucose (UA) Urine Ketones Urine Blood Urine Nitrite Ur Leukocyte Esterase Urine WBC (Auto) Urine RBC (Auto) 03/20/20 03/20/20 00:50 01:10 WBC RBC Hgb Hct MCV MCH MCHC RDW Plt Count Seg Neutrophils % VBG pH VBG pCO2 VBG HCO3 VBG Base Excess Sodium Potassium Chloride Carbon Dioxide Anion Gap BUN Creatinine Est GFR ( Amer) Glucose Lactic Acid 1.4 Calcium Total Bilirubin AST Alkaline Phosphatase Total Protein Albumin Urine Color YELLOW Urine Appearance SLIGHTLY-CLOUDY Urine pH 7.0 Ur Specific [place] 1.010 Urine Protein NEGATIVE Urine Glucose (UA) NEGATIVE Urine Ketones TRACE H Urine Blood NEGATIVE Urine Nitrite POSITIVE H Ur Leukocyte Esterase NEGATIVE Urine WBC (Auto) 10 Urine RBC (Auto) 2 03/20/20 00:50 Troponin I 0.105 Impressions: Chest X-Ray 03/20/20 00:33 IMPRESSION: No acute disease. Abdomen/Pelvis CT 03/20/20 01:53 IMPRESSION: Artifact the patient's arms. Imaging is degraded by patient motion, with resultant artifact. The best possible images were obtained. Improved aeration when compared to prior. Resolution of the pleural and pericardial fluid. No acute intra-abdominal process is seen. Moderate hard stool throughout the colon. No evidence of obstruction. The cause of the patient's fever and sepsis is not identified on this examination.. Assessment and Plan - Diagnosis (1) Sepsis Qualifiers: Sepsis type: sepsis due to unspecified organism Sepsis acute organ dysfunction status: unspecified Qualified Code(s): A41.9 - Sepsis, unspecified organism Is this a current diagnosis for this admission?: Yes Plan: Truly unclear source, IV fluid challenge, empiric coverage for pneumonia and meningitis. Follow-up vitals, mental status, exam, CBC and blood culture. (2) Hyponatremia Is this a current diagnosis for this admission?: Yes Plan: Normal saline challenge, follow-up chemistry (3) Hypokalemia Is this a current diagnosis for this admission?: Yes Plan: Check magnesium level, IV repletion and follow-up labs. (4) Encephalopathy acute Is this a current diagnosis for this admission?: Yes Plan: Secondary to #1, supportive care (5) Afib Is this a current diagnosis for this admission?: Yes Plan: Rate controlled continue outpatient regiment hold digoxin pending normalization of potassium level. - Time Time Spent with patient: 25-34 minutes - Inpatient Certification Medical Necessity: Need Close Monitoring Due to Risk of Patient Decompensation
[2020-03-20] MEDS ORDERED: VANCOMYCIN HCL 0 MG in DEXTROSE 5%-WATER 250 ML IV NR (04:45)
[2020-03-20] MEDS ORDERED: VANCOMYCIN HCL 1,000 MG in DEXTROSE 5%-WATER 250 ML IV ONE (05:00)
[2020-03-20] MEDS ORDERED: VANCOMYCIN HCL INJ 1000 MG VIAL ONE (05:15)
[2020-03-20] MEDS: HEPARIN SOD (PORCINE) 5,000 UNIT/ML 1 ML VIAL SUBCUT SCH ×3 (05:26→21:03)
[2020-03-20] MEDS: POTASSI CL 20 MEQ/50 ML RIDER 20 MEQ/50 ML RTUPB IV SCH ×2 (05:31→07:28)
[2020-03-20 05:58] LABS: MEAN CORPUSCULAR VOLUME 98 fl (80-97)
[2020-03-20 06:09] LABS: ABSOLUTE BASOPHILS # (AUTO) 0.1 10^3/uL (0.0-0.2); ABSOLUTE EOSINOPHILS # (AUTO) 0.1 10^3/uL (0.0-0.6); ABSOLUTE LYMPHOCYTES (AUTO) 2.3 10^3/uL (0.5-4.7); ABSOLUTE MONOCYTES (AUTO) 1.2 10^3/uL (0.1-1.4); ABSOLUTE NEUT (AUTO) 14.4 10^3/uL (1.7-8.2); BASOPHILS % (AUTO) 0.5 % (0-2); EOSINOPHILS % (AUTO) 0.4 % (0-6); HEMATOCRIT 35.8 % (36.0-47.0); HEMOGLOBIN 12.1 g/dL (12.0-15.5); LYMPHOCYTES % (AUTO) 12.5 % (13-45); MEAN CORPUSCULAR HEMOGLOBIN 32.9 pg (27.0-33.4); MEAN CORPUSCULAR HGB CONC 33.7 g/dL (32.0-36.0); MONOCYTES % (AUTO) 6.8 % (3-13); PLATELET COUNT 136 10^3/uL (150-450); RED BLOOD COUNT 3.67 10^6/uL (3.72-5.28); RED CELL DISTRIBUTION WIDTH 13.8 % (11.5-14.0); SEGMENTED NEUTROPHILS % (AUTO) 79.8 % (42-78); TOTAL CELLS COUNTED % (AUTO) 100 %
[2020-03-20 06:15] LABS: ANION GAP 5 (5-19); BLOOD UREA NITROGEN 18 mg/dL (7-20); CALCIUM 8.6 mg/dL (8.4-10.2); CARBON DIOXIDE 27 mmol/L (22-30); CHLORIDE 98 mmol/L (98-107); GLUCOSE 114 mg/dL (75-110); POTASSIUM 3.9 mmol/L (3.6-5.0)
[2020-03-20] MEDS: FAMOTIDINE 20 MG TABLET PO SCH ×2 (09:25→21:04)
[2020-03-20] MEDS: IPRATROPIUM/ALBUTEROL 0.5-2.5 MG/3 ML AMPUL NEB SCH ×2 (09:34→16:20)
[2020-03-20] MEDS ORDERED: CEFTRIAXONE 1 GM/D5W RTU 50 ML IV SCH (10:00)
--- NOTE | 2020-03-20 12:49 | EKG REPORT ---
SEVERITY:- ABNORMAL ECG - SINUS TACHYCARDIA MULTIPLE ATRIAL PREMATURE COMPLEXES LEFT AXIS DEVIATION LVH WITH SECONDARY REPOLARIZATION ABNORMALITY : Confirmed by: Mitul Smith MD 20-Mar-2020 12:48:44
[2020-03-20] MEDS: ACETAMINOPHEN 325 MG TABLET PO PRN (16:34)
[2020-03-20] MEDS ORDERED: SIMETHICONE 80 MG TAB.CHEW PO PRN (17:38)
[2020-03-20] MEDS ORDERED: ALBUTEROL SULFATE HFA (90 MCG/PUFF) 8 GM MDI (1 MDI/ER DISP) IH PRN (17:38)
[2020-03-20] MEDS ORDERED: LORAZEPAM 0.5 MG TABLET PO PRN (17:38)
[2020-03-20] MEDS ORDERED: ALBUTEROL SULFATE HFA (90 MCG/PUFF) 200 PUFF/8.5 GM MDI IH PRN (17:57)
[2020-03-20] MEDS ORDERED: ALBUTEROL SULFATE HFA (90 MCG/PUFF) 8 GM MDI IH SCH (18:00)
[2020-03-20] MEDS: MONTELUKAST SODIUM 10 MG TABLET PO SCH (18:12)
[2020-03-20] MEDS: MAGNESIUM OXIDE 400 MG TABLET PO SCH (18:12)
[2020-03-20] MEDS: ALBUTEROL SULFATE HFA (90 MCG/PUFF) 200 PUFF/8.5 GM MDI IH SCH (18:46)
[2020-03-20] MEDS: CYCLOSPORINE 0.05% OPH EMULSIO 0.4 ML DROPERETTE OU SCH (18:46)
[2020-03-20] MEDS: MELOXICAM 7.5 MG TABLET PO SCH (18:46)
[2020-03-20] MEDS: GABAPENTIN 300 MG CAPSULE PO SCH (21:04)
[2020-03-20] MEDS: DILTIAZEM HCL 120 MG CAP.SR.24H PO SCH (21:04)
[2020-03-20] MEDS: AZITHROMYCIN 500 MG in DEXTROSE 5%-WATER 250 ML IV SCH (21:16)
[2020-03-21] MEDS: ACETAMINOPHEN 325 MG TABLET PO PRN (00:50)
[2020-03-21] MEDS: HEPARIN SOD (PORCINE) 5,000 UNIT/ML 1 ML VIAL SUBCUT SCH ×3 (05:21→21:04)
[2020-03-21] MEDS: MELOXICAM 7.5 MG TABLET PO SCH ×2 (05:59→18:02)
[2020-03-21] MEDS: GABAPENTIN 300 MG CAPSULE PO SCH ×3 (05:59→21:03)
[2020-03-21] MEDS ORDERED: VANCOMYCIN HCL 1,000 MG in DEXTROSE 5%-WATER 250 ML IV SCH (06:00)
[2020-03-21] MEDS: PREDNISONE 5 MG TABLET PO SCH (06:02)
[2020-03-21 06:59] LABS: ABSOLUTE BASOPHILS # (AUTO) 0.1 10^3/uL (0.0-0.2); ABSOLUTE EOSINOPHILS # (AUTO) 0.3 10^3/uL (0.0-0.6); ABSOLUTE LYMPHOCYTES (AUTO) 1.8 10^3/uL (0.5-4.7); ABSOLUTE NEUT (AUTO) 7.2 10^3/uL (1.7-8.2); BASOPHILS % (AUTO) 0.8 % (0-2); EOSINOPHILS % (AUTO) 2.6 % (0-6); HEMATOCRIT 35.1 % (36.0-47.0); HEMOGLOBIN 11.9 g/dL (12.0-15.5); LYMPHOCYTES % (AUTO) 17.7 % (13-45); MEAN CORPUSCULAR HEMOGLOBIN 33.1 pg (27.0-33.4); MEAN CORPUSCULAR HGB CONC 33.9 g/dL (32.0-36.0); MEAN CORPUSCULAR VOLUME 98 fl (80-97); MONOCYTES % (AUTO) 9.4 % (3-13); PLATELET COUNT 134 10^3/uL (150-450); RED CELL DISTRIBUTION WIDTH 14.2 % (11.5-14.0); SEGMENTED NEUTROPHILS % (AUTO) 69.5 % (42-78); TOTAL CELLS COUNTED % (AUTO) 100 %; WHITE BLOOD COUNT 10.4 10^3/uL (4.0-10.5)
[2020-03-21 07:19] LABS: ANION GAP 6 (5-19); BLOOD UREA NITROGEN 10 mg/dL (7-20); CALCIUM 8.8 mg/dL (8.4-10.2); CARBON DIOXIDE 27 mmol/L (22-30); CHLORIDE 102 mmol/L (98-107); GLUCOSE 108 mg/dL (75-110); POTASSIUM 4.1 mmol/L (3.6-5.0)
[2020-03-21] MEDS: COLCHICINE 0.6 MG TABLET PO SCH (09:43)
[2020-03-21] MEDS: DILTIAZEM HCL 120 MG CAP.SR.24H PO SCH ×2 (09:44→21:03)
[2020-03-21] MEDS: DIGOXIN 0.125 MG TABLET PO SCH (09:44)
[2020-03-21] MEDS: FLUTICASONE/VILANTEROL 100-25 MCG/DOSE IH SCH (09:44)
[2020-03-21] MEDS: CLOPIDOGREL BISULFATE 75 MG TABLET PO SCH (09:44)
[2020-03-21] MEDS: ASPIRIN 81 MG TABLET, ENT COATED PO SCH (09:45)
[2020-03-21] MEDS: ALBUTEROL SULFATE HFA (90 MCG/PUFF) 200 PUFF/8.5 GM MDI IH SCH ×3 (09:45→17:12)
[2020-03-21] MEDS: MAGNESIUM OXIDE 400 MG TABLET PO SCH ×2 (09:45→17:11)
[2020-03-21] MEDS: CEFTRIAXONE 1 GM/D5W RTU 1 GM/50 ML RTUPB IV SCH (09:46)
[2020-03-21] MEDS: CYCLOSPORINE 0.05% OPH EMULSIO 0.4 ML DROPERETTE OU SCH ×2 (09:46→17:11)
[2020-03-21] MEDS: FAMOTIDINE 20 MG TABLET PO SCH ×2 (09:47→21:03)
[2020-03-21] MEDS: MONTELUKAST SODIUM 10 MG TABLET PO SCH (17:11)
--- NOTE | 2020-03-21 17:13 | PDOC PROGRESS REPORT ---
Subjective Progress Note for:: 03/21/20 Subjective:: Patient states she overall feels better. Still feels a little bit fatigued. Endorses polyuria and mild dysuria. Did feel short of breath before but that is starting to improve. Denies any chest pain. States that she is worried about her A. fib being triggered. Reason For Visit: PNEUMONIA Physical Exam Vital Signs: Temp Pulse Resp BP Pulse Ox 97.6 F 69 16 147/66 H 100 03/21/20 16:18 03/21/20 16:18 03/21/20 16:18 03/21/20 16:18 03/21/20 16:18 Intake & Output 03/20/20 03/21/20 03/22/20 06:59 06:59 06:59 Intake Total 1800 1179 600 Balance 1800 1179 600 Weight 61 kg 61.4 kg General appearance: PRESENT: no acute distress, cooperative Neck exam: ABSENT: JVD Respiratory exam: PRESENT: symmetrical, unlabored. ABSENT: tachypnea, wheezes Cardiovascular exam: PRESENT: RRR, +S1, +S2. ABSENT: tachycardia GI/Abdominal exam: PRESENT: soft. ABSENT: rebound, rigid, tenderness Neurological exam: PRESENT: alert, awake, oriented to person, oriented to place, oriented to time Results Laboratory Results: 03/21/20 06:24 03/21/20 06:24 03/21/20 03/21/20 06:24 06:24 WBC 10.4 RBC 3.60 L Hgb 11.9 L Hct 35.1 L MCV 98 H MCH 33.1 MCHC 33.9 RDW 14.2 H Plt Count 134 L Seg Neutrophils % 69.5 Sodium 135.3 L Potassium 4.1 Chloride 102 Carbon Dioxide 27 Anion Gap 6 BUN 10 Creatinine 0.69 Est GFR ( Amer) > 60 Glucose 108 Calcium 8.8 03/20/20 01:10 Catheterized Urine Urine Culture - Final Escherichia Coli 03/20/20 03/20/20 00:50 05:35 Troponin I 0.105 0.087 Impressions: Chest X-Ray 03/20/20 00:33 IMPRESSION: No acute disease. Abdomen/Pelvis CT 03/20/20 01:53 IMPRESSION: Artifact the patient's arms. Imaging is degraded by patient motion, with resultant artifact. The best possible images were obtained. Improved aeration when compared to prior. Resolution of the pleural and pericardial fluid. No acute intra-abdominal process is seen. Moderate hard stool throughout the colon. No evidence of obstruction. The cause of the patient's fever and sepsis is not identified on this examination.. Assessment and Plan - Diagnosis (1) E. coli UTI Is this a current diagnosis for this admission?: Yes Plan: I believe this to be the cause of her sepsis. Currently her fever seems to have resolved. Urine culture growing E. coli which is pansensitive. We will continue on ceftriaxone for today and de-escalate therapy tomorrow. Leukocytosis has also resolved. (2) Sepsis Qualifiers: Sepsis type: sepsis due to unspecified organism Sepsis acute organ dysfunction status: unspecified Qualified Code(s): A41.9 - Sepsis, unspecified organism Is this a current diagnosis for this admission?: Yes Plan: Patient has been worked up for source of sepsis. I believe the source to be UTI. Chest x-ray shows some interstitial opacities that seem to be rather chronic. I do not see any overt pneumonia on her chest x-ray. Have discontinued her vancomycin. She also seem to be having a lot of constitutional symptoms including fever chills, myalgias and headache. Lactic acid is normal. Abdominal/pelvis CT was unremarkable. We will continue to treat her urinary tract infection with ceftriaxone. Plan to discontinue azithromycin if COVID-19 test comes back negative. (3) Paroxysmal atrial fibrillation Is this a current diagnosis for this admission?: Yes Plan: Continue patient's home medications. (4) Encephalopathy acute Is this a current diagnosis for this admission?: Yes Plan: Resolved. Possibly secondary to sepsis. (5) Hypokalemia Is this a current diagnosis for this admission?: Yes Plan: Resolved with repletion. (6) Hyponatremia Is this a current diagnosis for this admission?: Yes Plan: Improved with normal saline challenge. Continue to follow-up chemistry - Time Time Spent with patient: Less than 15 minutes
[2020-03-21] MEDS: AZITHROMYCIN 500 MG in DEXTROSE 5%-WATER 250 ML IV SCH (21:03)
[2020-03-22] MEDS: HEPARIN SOD (PORCINE) 5,000 UNIT/ML 1 ML VIAL SUBCUT SCH ×3 (05:04→21:30)
[2020-03-22 05:47] LABS: ABSOLUTE BASOPHILS # (AUTO) 0.1 10^3/uL (0.0-0.2); ABSOLUTE EOSINOPHILS # (AUTO) 0.3 10^3/uL (0.0-0.6); ABSOLUTE LYMPHOCYTES (AUTO) 2.4 10^3/uL (0.5-4.7); ABSOLUTE MONOCYTES (AUTO) 0.9 10^3/uL (0.1-1.4); ABSOLUTE NEUT (AUTO) 5.9 10^3/uL (1.7-8.2); EOSINOPHILS % (AUTO) 3.1 % (0-6); HEMATOCRIT 35.8 % (36.0-47.0); HEMOGLOBIN 12.2 g/dL (12.0-15.5); LYMPHOCYTES % (AUTO) 24.8 % (13-45); MEAN CORPUSCULAR HEMOGLOBIN 33.1 pg (27.0-33.4); MEAN CORPUSCULAR HGB CONC 34.2 g/dL (32.0-36.0); MEAN CORPUSCULAR VOLUME 97 fl (80-97); MONOCYTES % (AUTO) 9.4 % (3-13); PLATELET COUNT 143 10^3/uL (150-450); RED CELL DISTRIBUTION WIDTH 13.9 % (11.5-14.0); SEGMENTED NEUTROPHILS % (AUTO) 61.7 % (42-78); TOTAL CELLS COUNTED % (AUTO) 100 %; WHITE BLOOD COUNT 9.6 10^3/uL (4.0-10.5)
[2020-03-22 05:54] LABS: ANION GAP 7 (5-19); BLOOD UREA NITROGEN 16 mg/dL (7-20); CALCIUM 9.2 mg/dL (8.4-10.2); CARBON DIOXIDE 26 mmol/L (22-30); CHLORIDE 101 mmol/L (98-107); GLUCOSE 93 mg/dL (75-110); POTASSIUM 3.9 mmol/L (3.6-5.0)
[2020-03-22] MEDS: GABAPENTIN 300 MG CAPSULE PO SCH ×3 (06:20→19:26)
[2020-03-22] MEDS: MELOXICAM 7.5 MG TABLET PO SCH ×2 (06:21→18:12)
[2020-03-22] MEDS: PREDNISONE 5 MG TABLET PO SCH (06:21)
[2020-03-22] MEDS: CYCLOSPORINE 0.05% OPH EMULSIO 0.4 ML DROPERETTE OU SCH ×2 (11:09→18:12)
[2020-03-22] MEDS: COLCHICINE 0.6 MG TABLET PO SCH (11:09)
[2020-03-22] MEDS: FLUTICASONE/VILANTEROL 100-25 MCG/DOSE IH SCH (11:09)
[2020-03-22] MEDS: ASPIRIN 81 MG TABLET, ENT COATED PO SCH (11:09)
[2020-03-22] MEDS: MAGNESIUM OXIDE 400 MG TABLET PO SCH ×2 (11:10→18:12)
[2020-03-22] MEDS: CLOPIDOGREL BISULFATE 75 MG TABLET PO SCH (11:10)
[2020-03-22] MEDS: FAMOTIDINE 20 MG TABLET PO SCH ×2 (11:10→21:29)
[2020-03-22] MEDS: DILTIAZEM HCL 120 MG CAP.SR.24H PO SCH ×2 (11:10→21:29)
[2020-03-22] MEDS: CEFTRIAXONE 1 GM/D5W RTU 1 GM/50 ML RTUPB IV SCH (12:03)
[2020-03-22] MEDS: ALBUTEROL SULFATE HFA (90 MCG/PUFF) 200 PUFF/8.5 GM MDI IH SCH ×3 (12:12→18:12)
--- NOTE | 2020-03-22 16:55 | PDOC PROGRESS REPORT ---
Subjective Progress Note for:: 03/22/20 Subjective:: Patient complains of feeling a little woozy still and fatigued. However her breathing has improved and she is off all oxygen. Still having some headaches but states about mild to moderate throbbing in sensation. Reason For Visit: PNEUMONIA Physical Exam Vital Signs: Temp Pulse Resp BP Pulse Ox 97.6 F 66 16 118/58 L 99 03/22/20 15:04 03/22/20 15:04 03/22/20 15:04 03/22/20 15:04 03/22/20 15:04 Intake & Output 03/21/20 03/22/20 03/23/20 06:59 06:59 06:59 Intake Total 1179 1350 Output Total 2000 Balance 1179 -650 Weight 61.4 kg 60.1 kg General appearance: PRESENT: no acute distress, cooperative Neck exam: ABSENT: JVD Respiratory exam: PRESENT: clear to auscultation keysha, unlabored. ABSENT: tachypnea, wheezes Cardiovascular exam: PRESENT: RRR, +S1, +S2. ABSENT: tachycardia GI/Abdominal exam: PRESENT: soft. ABSENT: rebound, rigid, tenderness Neurological exam: PRESENT: alert, awake, oriented to person, oriented to place, oriented to time Results Laboratory Results: 03/22/20 04:54 03/22/20 04:54 03/22/20 03/22/20 04:54 04:54 WBC 9.6 RBC 3.70 L Hgb 12.2 Hct 35.8 L MCV 97 MCH 33.1 MCHC 34.2 RDW 13.9 Plt Count 143 L Seg Neutrophils % 61.7 Sodium 134.4 L Potassium 3.9 Chloride 101 Carbon Dioxide 26 Anion Gap 7 BUN 16 Creatinine 0.68 Est GFR ( Amer) > 60 Glucose 93 Calcium 9.2 Magnesium 1.7 03/20/20 03/20/20 00:50 05:35 Troponin I 0.105 0.087 Impressions: Chest X-Ray 03/20/20 00:33 IMPRESSION: No acute disease. Abdomen/Pelvis CT 03/20/20 01:53 IMPRESSION: Artifact the patient's arms. Imaging is degraded by patient motion, with resultant artifact. The best possible images were obtained. Improved aeration when compared to prior. Resolution of the pleural and pericardial fluid. No acute intra-abdominal process is seen. Moderate hard stool throughout the colon. No evidence of obstruction. The cause of the patient's fever and sepsis is not identified on this examination.. Assessment and Plan - Diagnosis (1) E. coli UTI Is this a current diagnosis for this admission?: Yes Plan: I believe this to be the cause of her sepsis. Currently her fever seems to have resolved. Urine culture growing E. coli which is pansensitive. Continue ceftriaxone for today. Blood cultures negative. (2) Sepsis Qualifiers: Sepsis type: sepsis due to unspecified organism Sepsis acute organ dysfunction status: unspecified Qualified Code(s): A41.9 - Sepsis, unspecified organism Is this a current diagnosis for this admission?: Yes Plan: Patient has been worked up for source of sepsis. I believe the source to be UTI. Chest x-ray shows some interstitial opacities that seem to be rather chronic. I do not see any overt pneumonia on her chest x-ray. Have discontinued her vancomycin. She also seem to be having a lot of constitutional symptoms including fever chills, myalgias and headache initially. Lactic acid is normal. Abdominal/pelvis CT was unremarkable. We will continue to treat her urinary tract infection with ceftriaxone. COVID-19 test is negative. Discontinue azithromycin. (3) Paroxysmal atrial fibrillation Is this a current diagnosis for this admission?: Yes Plan: Digoxin and Cardizem (4) Encephalopathy acute Is this a current diagnosis for this admission?: Yes Plan: Resolved. Possibly secondary to sepsis. (5) Hypokalemia Is this a current diagnosis for this admission?: Yes Plan: Resolved with repletion. (6) Hyponatremia Is this a current diagnosis for this admission?: Yes Plan: Improved with normal saline challenge. Continue to follow-up chemistry - Plan Summary Summary: Physical and occupational therapy today - Time Time Spent with patient: Less than 15 minutes
[2020-03-22] MEDS: ACETAMINOPHEN 325 MG TABLET PO PRN (18:11)
[2020-03-22] MEDS: MONTELUKAST SODIUM 10 MG TABLET PO SCH (18:12)
--- NOTE | 2020-03-22 22:54 | CDI QUERY ---
CDI Query CDI Review: Dear Provider: To better reflect your patients severity of illness, morbidity, and resource utilization Please specify and document in the Progress Notes and Discharge Summary if you are monitoring / treating / evaluating any of the following conditions: Query Clinical indicators If you can, please further specify the Paroxysmal atrial fibrillation: Chronic Permanent Persistent Longstanding Unable to determine Other Hx. Atrial fibrillation Diagnosis: Paroxysmal atrial fibrillation The terms probable, suspected, likely, possible or still to be ruled out may be used if you are unable to determine the exact nature of a condition. Thank you for your consideration, Clinical Documentation Physician Advisor MALLORY Rodriguez RN
[2020-03-23] MEDS: HEPARIN SOD (PORCINE) 5,000 UNIT/ML 1 ML VIAL SUBCUT SCH (05:45)
[2020-03-23] MEDS: MELOXICAM 7.5 MG TABLET PO SCH (06:18)
[2020-03-23] MEDS: GABAPENTIN 300 MG CAPSULE PO SCH (06:18)
[2020-03-23] MEDS: PREDNISONE 5 MG TABLET PO SCH (06:18)
[2020-03-23] MEDS: ACETAMINOPHEN 325 MG TABLET PO PRN (06:57)
[2020-03-23] MEDS: DILTIAZEM HCL 120 MG CAP.SR.24H PO SCH (09:28)
[2020-03-23] MEDS: COLCHICINE 0.6 MG TABLET PO SCH (09:28)
[2020-03-23] MEDS: MAGNESIUM OXIDE 400 MG TABLET PO SCH (09:28)
[2020-03-23] MEDS: FAMOTIDINE 20 MG TABLET PO SCH (09:28)
[2020-03-23] MEDS: CEFTRIAXONE 1 GM/D5W RTU 1 GM/50 ML RTUPB IV SCH (09:29)
[2020-03-23] MEDS: ASPIRIN 81 MG TABLET, ENT COATED PO SCH (09:29)
[2020-03-23] MEDS: CLOPIDOGREL BISULFATE 75 MG TABLET PO SCH (09:29)
[2020-03-23] MEDS: FLUTICASONE/VILANTEROL 100-25 MCG/DOSE IH SCH (09:47)
[2020-03-23] MEDS: DIGOXIN 0.125 MG TABLET PO SCH (09:47)
[2020-03-23] MEDS: CYCLOSPORINE 0.05% OPH EMULSIO 0.4 ML DROPERETTE OU SCH (09:48)
[2020-03-23] MEDS: ALBUTEROL SULFATE HFA (90 MCG/PUFF) 200 PUFF/8.5 GM MDI IH SCH (10:47)
[2020-03-23 12:44] VITALS: BP 117/81
--- NOTE | 2020-03-23 13:00 | PDOC DISCHARGE SUMMARY ---
Impression - Admit/DC Date/PCP Admission Date/Primary Care Provider: 03/20/20 03:18 LOBITO HYMAN MD Discharge Date: 03/23/20 - Discharge Diagnosis (1) E. coli UTI Is this a current diagnosis for this admission?: Yes (2) Sepsis Is this a current diagnosis for this admission?: Yes (3) Paroxysmal atrial fibrillation Is this a current diagnosis for this admission?: Yes (4) Encephalopathy acute Is this a current diagnosis for this admission?: Yes (5) Hypokalemia Is this a current diagnosis for this admission?: Yes (6) Hyponatremia Is this a current diagnosis for this admission?: Yes - Additional Information Resuscitation Status: Full Code Discharge Diet: As Tolerated Discharge Activity: Activity As Tolerated Referrals: LOBITO HYMAN MD [Primary Care Provider] - Follow up as needed Prescriptions: Prednisone [Deltasone 20 mg Tablet] 20 mg PO DAILY 4 Days #4 tablet Cephalexin Monohydrate [Keflex 500 mg Capsule] 500 mg PO TID 4 Days #12 capsule Home Medications: Adalimumab [Humira] 40 mg SQ [id number] 11/22/16 Ascorbate Calcium [Vitamin C] 500 mg PO DAILY@1700 11/22/16 Clopidogrel Bisulfate [Plavix 75 mg Tablet] 75 mg PO DAILY@0811/22/16 Colchicine [Colchicine 0.6 mg Tablet] 0.6 mg PO DAILY@0811/22/16 Cyclosporine 0.05% Oph Emulsio [Restasis 0.05% Oph Emulsion Pf 0.4 ml] 1 drop OU BID 11/22/16 Digoxin [Lanoxin 0.125 mg Tablet] 0.125 mg PO MOWEFR@0811/22/16 Diltiazem HCl [Diltiazem 12Hr ER] 120 mg PO BID@08,199911/22/16 Ergocalciferol (Vitamin D2) [Vitamin D2] 50,000 unit PO [id number] 11/22/16 Fluticasone Propionate [Flonase Nasal [place]elle 50 Mcg/Poyntelle 16 gm] 1 spray NASL BID 11/22/16 Fluticasone/Salmeterol [Advair 100-50 Diskus 14 Dose/Diskus] 1 puff IH Q12 11/22/16 Gabapentin [Neurontin 300 mg Capsule] 300 mg PO Q8@0700,1400,199911/22/16 Lansoprazole [Prevacid 15 mg Odt Tablet] 30 mg PO DAILY@0700 11/22/16 Magnesium Oxide [Magnesium] 400 mg PO Q8@0800,1400,199911/22/16 Meclizine HCl [Antivert 25 mg Tablet] 25 mg PO Q8HP PRN 11/22/16 Meloxicam [Mobic 7.5 mg Tablet] 7.5 mg PO BID@0700,1900 11/22/16 Montelukast Sodium [Singulair 10 mg Tablet] 10 mg PO QPM 11/22/16 Multivit-Min/Iron/Folic/Lutein [Centrum Silver Women Tablet] 1 each PO DAILY@17011/22/16 Prednisone [Deltasone 5 mg Tablet] 7.5 mg PO DAILY@0700 11/22/16 Sennosides [Senna] 8.6 mg PO Q2D@199911/22/16 Simethicone [Gas-X] 80 mg PO Q6HP PRN 11/22/16 Albuterol Sulfate [Ventolin Hfa] 2 puff IH Q4HP PRN 05/25/18 Lorazepam [Ativan 0.5 mg Tablet] 0.5 mg PO ASDIR PRN 05/25/18 Valacyclovir HCl [Valacyclovir] 500 mg PO ASDIR PRN 05/25/18 Acetaminophen [Tylenol Arthritis] 650 mg PO Q6HP PRN 03/20/20 Aspirin [Ecotrin 81 mg EC Tablet] 81 mg PO DAILY 03/20/20 Calcium Carbonate/Vitamin D3 [Calcium 600-Vit D3 500 Softgel] 1 tab PO BID@0700,1700 03/20/20 Cephalexin Monohydrate [Keflex 500 mg Capsule] 500 mg PO TID 4 Days #12 capsule 03/23/20 Prednisone [Deltasone 20 mg Tablet] 20 mg PO DAILY 4 Days #4 tablet 03/23/20 History of Present Illiness History of Present Illness: According to admitting provider: ARMANDO MANLEY is a 85 year old female with a past medical history of atrial fibrillation, hypertension, dyslipidemia, COPD, bronchitis, pneumonia, GERD, fibromyalgia, osteoarthritis and depression. She is a extremely poor historian and subsequently history is obtained by the record she presents with 2 days of lethargy, back pain with painful urination and a recent fall. In the emergency department she is found to have l hypotension, eukocytosis and a fever. She started on empiric antibiotics for sepsis from pneumonia and referred to the hospitalist for admission. Work-up is however uncertain for cause of sepsis and fever. She is asleep but arousable but exam is completely nonfocal. Hospital Course Hospital Course: Patient presented with acute metabolic encephalopathy which was thought to be secondary to sepsis. Patient was initially suspected to have a pneumonia as cause of her infection. She was febrile. She was tested for COVID-19 which was negative. No further evaluation or reevaluation of patient's chest imaging, her chest x-ray only seems to show chronic mild interstitial changes but no evident pneumonia. I believe patient was having UTI leading to sepsis. Patient did complain of dysuria and polyuria as well as myalgias which have been occurring before her encephalopathy. Patient was nonetheless started on antibiotics appropriately. Urine culture has grown E. coli which is pansensitive. Patient will be discharged on Keflex to take for 4 more days. Patient's blood cultures were negative. Patient's metabolic encephalopathy has resolved. Patient has worked with physical therapy and I have recommended home health with PT and OT. Patient also complains of hip pains and has known history of arthritis. 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 I will give her prednisone 20 mg for 4 days after which she can resume taking her 7.5 mg daily as before. Patient is being discharged in stable condition. She has been doing well over the past 2 days fevers have stopped. Have discussed plan with both patient and her grandson who patient lives with and is agreeable to plan. Physical Exam Vital Signs: Temp Pulse Resp BP Pulse Ox 97.6 F 67 16 117/81 99 03/23/20 12:41 03/23/20 12:41 03/23/20 12:41 03/23/20 12:41 03/23/20 12:41 Intake & Output 03/22/20 03/23/20 03/24/20 06:59 06:59 06:59 Intake Total 1350 1130 Output Total 2000 Balance -650 1130 Weight 60.1 kg 59 kg General appearance: PRESENT: no acute distress, cooperative Respiratory exam: PRESENT: unlabored. ABSENT: accessory muscle use, retraction Cardiovascular exam: ABSENT: tachycardia Neurological exam: PRESENT: alert, awake, oriented to person, oriented to place, oriented to time Results Laboratory Results: WBC 9.6 10^3/uL (4.0-10.5) 03/22/20 04:54 RBC 3.70 10^6/uL (3.72-5.28) L 03/22/20 04:54 Hgb 12.2 g/dL (12.0-15.5) 03/22/20 04:54 Hct 35.8 % (36.0-47.0) L 03/22/20 04:54 MCV 97 fl (80-97) 03/22/20 04:54 MCH 33.1 pg (27.0-33.4) 03/22/20 04:54 MCHC 34.2 g/dL (32.0-36.0) 03/22/20 04:54 RDW 13.9 % (11.5-14.0) 03/22/20 04:54 Plt Count 143 10^3/uL (150-450) L 03/22/20 04:54 Lymph % (Auto) 24.8 % (13-45) 03/22/20 04:54 Howell % (Auto) 9.4 % (3-13) 03/22/20 04:54 Eos % (Auto) 3.1 % (0-6) 03/22/20 04:54 Baso % (Auto) 1.0 % (0-2) 03/22/20 04:54 Absolute Neuts (auto) 5.9 10^3/uL (1.7-8.2) 03/22/20 04:54 Absolute Lymphs (auto) 2.4 10^3/uL (0.5-4.7) 03/22/20 04:54 Absolute Monos (auto) 0.9 10^3/uL (0.1-1.4) 03/22/20 04:54 Absolute Eos (auto) 0.3 10^3/uL (0.0-0.6) 03/22/20 04:54 Absolute Basos (auto) 0.1 10^3/uL (0.0-0.2) 03/22/20 04:54 Total Counted 100 03/20/20 00:50 Seg Neutrophils % 61.7 % (42-78) 03/22/20 04:54 Seg Neuts % (Manual) 87 % (42-78) H 03/20/20 00:50 Lymphocytes % (Manual) 9 % (13-45) L 03/20/20 00:50 Monocytes % (Manual) 4 % (3-13) 03/20/20 00:50 Eosinophils % (Manual) 0 % (0-6) 03/20/20 00:50 Basophils % (Manual) 0 % (0-2) 03/20/20 00:50 Abs Neuts (Manual) 16.3 10^3/uL (1.7-8.2) H 03/20/20 00:50 Abs Lymphs (Manual) 1.7 10^3/uL (0.5-4.7) 03/20/20 00:50 Abs Monocytes (Manual) 0.7 10^3/uL (0.1-1.4) 03/20/20 00:50 Absolute Eos (Manual) 0.0 10^3/uL (0.0-0.6) 03/20/20 00:50 Abs Basophils (Manual) 0.0 10^3/uL (0.0-0.2) 03/20/20 00:50 Toxic Granulation SLIGHT 03/20/20 00:50 Platelet Comment ADEQUATE 03/20/20 00:50 Polychromasia SLIGHT 03/20/20 00:50 Poikilocytosis SLIGHT 03/20/20 00:50 Anisocytosis SLIGHT 03/20/20 00:50 Tear Drop Cells SLIGHT 03/20/20 00:50 Ovalocytes SLIGHT 03/20/20 00:50 Schistocytes SLIGHT 03/20/20 00:50 PT 14.8 SEC (11.4-15.4) 03/20/20 00:50 INR 1.15 03/20/20 00:50 VBG pH 7.44 (7.30-7.42) H 03/20/20 00:50 VBG pCO2 34.1 mmHg (35-63) L 03/20/20 00:50 VBG HCO3 22.7 mmol/L (20-32) 03/20/20 00:50 VBG Base Excess -0.5 mmol/L 03/20/20 00:50 Sodium 134.4 mmol/L (137-145) L 03/22/20 04:54 Potassium 3.9 mmol/L (3.6-5.0) 03/22/20 04:54 Chloride 101 mmol/L (98-107) 03/22/20 04:54 Carbon Dioxide 26 mmol/L (22-30) 03/22/20 04:54 Anion Gap 7 (5-19) 03/22/20 04:54 BUN 16 mg/dL (7-20) 03/22/20 04:54 Creatinine 0.68 mg/dL (0.52-1.25) 03/22/20 04:54 Est GFR ( Amer) > 60 (>60) 03/22/20 04:54 Est GFR (MDRD) Non-Af > 60 (>60) 03/22/20 04:54 Glucose 93 mg/dL (75-110) 03/22/20 04:54 Lactic Acid 1.8 mmol/L (0.7-2.1) 03/20/20 07:00 Calcium 9.2 mg/dL (8.4-10.2) 03/22/20 04:54 Magnesium 1.7 mg/dL (1.6-2.3) 03/22/20 04:54 Total Bilirubin 0.6 mg/dL (0.2-1.3) 03/20/20 00:50 Direct Bilirubin 0.2 mg/dL (0.0-0.4) 03/20/20 00:50 Neonat Total Bilirubin Not Reportable 03/20/20 00:50 Neonat Direct Bilirubin Not Reportable 03/20/20 00:50 Neonat Indirect Bili Not Reportable 03/20/20 00:50 AST 24 U/L (14-36) 03/20/20 00:50 ALT 13 U/L (<35) 03/20/20 00:50 Alkaline Phosphatase 72 U/L (38-126) 03/20/20 00:50 Troponin I 0.087 ng/mL 03/20/20 05:35 Total Protein 6.4 g/dL (6.3-8.2) 03/20/20 00:50 Albumin 3.7 g/dL (3.5-5.0) 03/20/20 00:50 Urine Color YELLOW 03/20/20 01:10 Urine Appearance SLIGHTLY-CLOUDY 03/20/20 01:10 Urine pH 7.0 (5.0-9.0) 03/20/20 01:10 Ur Specific [place] 1.010 03/20/20 01:10 Urine Protein NEGATIVE mg/dL (NEGATIVE) 03/20/20 01:10 Urine Glucose (UA) NEGATIVE mg/dL (NEGATIVE) 03/20/20 01:10 Urine Ketones TRACE mg/dL (NEGATIVE) H 03/20/20 01:10 Urine Blood NEGATIVE (NEGATIVE) 03/20/20 01:10 Urine Nitrite POSITIVE (NEGATIVE) H 03/20/20 01:10 Urine Bilirubin NEGATIVE (NEGATIVE) 03/20/20 01:10 Urine Urobilinogen NEGATIVE mg/dL (<2.0) 03/20/20 01:10 Ur Leukocyte Esterase NEGATIVE (NEGATIVE) 03/20/20 01:10 Urine WBC (Auto) 10 /HPF 03/20/20 01:10 Urine RBC (Auto) 2 /HPF 03/20/20 01:10 Urine Mucus (Auto) RARE /LPF 03/20/20 01:10 Urine Ascorbic Acid 40 (NEGATIVE) H 03/20/20 01:10 COVID-19 Source NASOPHARYNGEAL 03/20/20 04:15 COVID-19 ([place]) NOT DETECTED 03/20/20 04:15 03/20/20 03/20/20 00:50 05:35 Troponin I 0.105 0.087 Impressions: Chest X-Ray 03/20/20 00:33 IMPRESSION: No acute disease. Abdomen/Pelvis CT 03/20/20 01:53 IMPRESSION: Artifact the patient's arms. Imaging is degraded by patient motion, with resultant artifact. The best possible images were obtained. Improved aeration when compared to prior. Resolution of the pleural and pericardial fluid. No acute intra-abdominal process is seen. Moderate hard stool throughout the colon. No evidence of obstruction. The cause of the patient's fever and sepsis is not identified on this examination.. Plan Time Spent: Greater than 30 Minutes Stroke Is this a Stroke Patient?: No Acute Heart Failure - Is this a Heart Failure Patient?: No
== END 2020-03-23 14:37 | disposition home health service (06) | DRG 871 ==
LOC: ER 00:30 → EH 03:18 → 5 08:47 → 4N 03-21 22:33
PROVIDERS: ADMIT Internal Medicine; ATTEND Internal Medicine
DX: A41.9 Sepsis, unspecified organism (principal); G93.41 Metabolic encephalopathy; E87.1 Hypo-osmolality and hyponatremia; N39.0 Urinary tract infection, site not specified; E87.6 Hypokalemia; B96.20 Unspecified Escherichia coli [E. coli] as the cause of diseases classified elsewhere; I48.0 Paroxysmal atrial fibrillation; I10 Essential (primary) hypertension; E78.5 Hyperlipidemia, unspecified; J44.9 Chronic obstructive pulmonary disease, unspecified; K21.9 Gastro-esophageal reflux disease without esophagitis; M19.90 Unspecified osteoarthritis, unspecified site; F32.9 Major depressive disorder, single episode, unspecified; M79.7 Fibromyalgia; M54.9 Dorsalgia, unspecified; Z91.81 History of falling; Z20.828 Contact with and (suspected) exposure to other viral communicable diseases; Z79.52 Long term (current) use of systemic steroids; Z79.899 Other long term (current) drug therapy; Z90.49 Acquired absence of other specified parts of digestive tract; Z90.710 Acquired absence of both cervix and uterus
CPT/HCPCS: 36415; 71045; 74177; 80048; 80053; 81001; 82803; 83605; 83735; 84484; 85025; 85610; 87040; 87070; 87086; 87088; 87186; 87205; 87635; 93005; 93010; 94799; 96361; 96365; 99291; C9803; J0456; J0696; J1644; J3370; J3480; J3490; J7040; J7060; J7120; J7512; J7620

== ENCOUNTER → 2020-04-05 | Outpatient (CLI) | payer MEDICARE, BC ==
[2020-04-05 09:18] LABS: ANION GAP 9 (5-19); BLOOD UREA NITROGEN 19 mg/dL (7-20); CALCIUM 9.5 mg/dL (8.4-10.2); CARBON DIOXIDE 26 mmol/L (22-30); CHLORIDE 100 mmol/L (98-107); CHOLESTEROL 174.94 mg/dL (0-200); GLUCOSE 85 mg/dL (75-110); POTASSIUM 4.5 mmol/L (3.6-5.0); TRIGLYCERIDES 167 mg/dL (<150)
[2020-04-05 09:29] LABS: DIRECT LDL 80 mg/dL (<100)
[2020-04-05 09:39] LABS: VLDL CHOLESTEROL 33.4 mg/dL (10-31)
== END ==
LOC: OD 07:57
PROVIDERS: ATTEND Family Medicine
DX: E78.2 Mixed hyperlipidemia (principal); I10 Essential (primary) hypertension; D64.9 Anemia, unspecified; Z79.899 Other long term (current) drug therapy
CPT/HCPCS: 36415; 80048; 80061; 83036; 84443